=== PATIENT | male | born 1960 | race Caucasian/White ===

== ENCOUNTER → 2016-08-15 | Outpatient (CLI) | payer MEDICARE, OTHER ==
[~2016-08-15] MED LIST: ALBU17AE23 IH; ALPR1T PO; ALPR2TAB2 PO; AMLO1CAP5; AMLO2.5T PO; AMLO5TAB2 PO; BUDE10.2 IH; CATHETER FLUSH 10 ML SYR IV PRN; CHOL10003; CHOL200035 PO; DCS100C; DCS100C PO; DICL75TA2 PO; DOXY100C2 PO; FAMO20TA45 PO; FERR-57; FEXO180T; FLUT9.9S; FURO-125 PO; GABA300T PO; GFN600TCR; HYDR-3584 PO; HYDR-3730 PO; HYDR-3812 PO; HYDR50TA3 PO; IOHEXOL 350 MG/ML 100 ML (OMNIPAQUE 350) VIAL IV ONE; LEVO500T69 PO; LEVO750T6 PO; LEVO88TA54 PO; LVT.05T PO; MTH10T PO; NF-ACI30T PO; NIA500ERT PO; NIAC250T17 PO; NS 100 ML (IVPB) BAG IV ONE; OMEP20CA6; OXYC-12; PARO20TA57 PO; PNT40TEC PO; POLY17PO6 PO; POTA10CA43 PO; POTA20TA8 PO; PRD10T PO; PRD20T PO; RABE20TA PO; RT-ALBUINH IH; SERT100T PO; VIT D2 PO
--- OUTSIDE RECORDS SUMMARY | 2016-08-15 13:03 | XMS REPORT | Continuity of Care Document ---
Author Author [facility] Organization [facility] Address Unknown Phone Unavailable Care Team Providers Care Manager Automotive Name Role Phone Supa Cortez PCP [phone] Source Comments Some departments are not documenting in the electronic medical record. If you do not see the information that you expected, contact Release of Information in the Health Information Management department at [phone] for further assistance in locating additional records.[facility] Active Allergies and Adverse Reactions Allergen Noted [...] Taken Blood Pressure 140/89 07/16/2014 3:45 PM TOXICOLOGY TEACHER Pulse 77 07/16/2014 3:45 PM TOXICOLOGY TEACHER Temperature 36.6 C (97.8 F) 07/16/2014 3:45 PM TOXICOLOGY TEACHER Respiratory Rate 19 07/16/2014 3:45 PM TOXICOLOGY TEACHER Height 1.78 m (5' 10.08") 07/16/2014 3:45 PM TOXICOLOGY TEACHER Weight 117.935 kg (260 lb) 07/16/2014 3:45 PM TOXICOLOGY TEACHER Body Mass Index 37.22 07/16/2014 3:45 PM TOXICOLOGY TEACHER Oxygen Saturation - - Plan of Care Health Maintenance Due Date Last Done Comments Physical (Comprehensive) 1967 Exam Pertussis Vaccine 1970 Tetanus Vaccine 1976 Colorectal Cancer 2009 Screening Influenza Vaccine 04/13/2016 Hepatitis C Screening Completed 06/04/2014, 06/04/2014 Results from Last 3 Months Not on file
--- NOTE | 2016-08-15 14:33 | Diagnostic Imaging Report ---
CT scan of the neck and chest performed with intravenous contrast. 100 mL of Omnipaque 350 is administered intravenously. INDICATION: Difficulty swallowing. History of carcinoma of the tongue. COPD. COMPARISON: 05/01/16. FINDINGS: CT neck: There is stable asymmetric soft tissue thickening along the left lateral aspect of the supraglottic region of the larynx with maximum axial dimensions of 2.1 x 1.8 cm and craniocaudal extension of about 2.7 cm. This is compared to 2.6 x 2.1 cm and 3.8 cm on the previous exam of 05/01/2016. This is again concerning for neoplastic etiology with slight decrease in overall size of this lesion. The mucosal pharyngeal space otherwise appears symmetric. The vocal cords demonstrate slight asymmetry without a discrete nodule. The parotid and submandibular glands appear unremarkable. Slight asymmetry with smaller left thyroid lobe is seen similar to prior exam. No definite mass. There is no significant lymphadenopathy in the cervical chain seen on either side. Previously seen slightly prominent nodule at level II cervical chain on the left side is 0.7 cm in short axis without significant change. CT chest: The lungs demonstrate minimal atelectasis in the bases and mild scarring in the posterior aspect of the right upper lobe. There is no significant consolidation, mass or suspicious nodule. There is mild respiratory motion artifact seen in the chest with the overall diagnostic quality of the exam acceptable for detection of significant abnormalities. There is no mediastinal mass. No significantly enlarged mediastinal or hilar lymph node. No significant axillary lymphadenopathy is seen. The thoracic aorta is normal in caliber. No dissection. The cardiac size is normal. No pericardial or pleural effusion. The osseous structures appear grossly unremarkable. Sections in the upper abdomen demonstrate cholecystectomy clips. IMPRESSION: CT neck: There is interval decrease in the size of the left-sided supraglottic mass. No significant lymphadenopathy or other mass identified. CT chest: 1. No significant abnormality. 2. The osseous structures appear grossly unremarkable. Dictated by: Dictated on workstation # [id number]
== END ==
LOC: RAD 13:00
PROVIDERS: ATTEND Nurse Practitioner Adult Health
DX: C01 Malignant neoplasm of base of tongue (principal)
CPT/HCPCS: 70491; 71260

== ENCOUNTER 2016-08-31 13:46 | Outpatient (RCR) | payer MEDICARE ==
--- OUTSIDE RECORDS SUMMARY | 2016-06-08 08:34 | XMS REPORT | Continuity of Care Document ---
Author Author [facility] Organization [facility] Address Unknown Phone Unavailable Care Team Providers Care Quarter Inspector Name Role Phone Supa Cortez PCP [phone] Source Comments Some departments are not documenting in the electronic medical record. If you do not see the information that you expected, contact Release of Information in the Health Information Management department at [phone] for further assistance in locating additional records.[facility] Active Allergies and Adverse Reactions Allergen Noted Date Severity Reactions Comments Lipitor 10/23/2011 MUSCLE PAIN Mobic 08/26/2009 UNKNOWN renal failure Pcn 05/28/2014 RASH Current Medications Prescription Sig. Disp. Refills Start End Date Status Date famotidine (PEPCID) 20 mg Take 20 mg by mouth twice Active tablet daily. methadone (DOLOPHINE; Take 10 mg by mouth every Active METHADOSE) 10 mg tablet 8 hours Take 2 tablets ALPRAZolam(+) (XANAX) 2 Take 2 mg by mouth three Active mg tablet times daily as needed. sertraline (ZOLOFT) 100 Take 100 mg by mouth Active mg tablet daily. potassium chloride SR Take 20 mEq by mouth Active (K-DUR) 20 mEq tablet daily. hydrochlorothiazide Take 50 mg by mouth Active (HYDRODIURIL) 50 mg daily. tablet polyethylene glycol 3350 Take 17 g by mouth daily. Active (GLYCOLAX; MIRALAX) 17 gram/dose powder levothyroxine (SYNTHROID) Take 88 mcg by mouth Active 88 mcg tablet daily. RABEprazole DR (+) Take 20 mg by mouth Active (ACIPHEX) 20 mg tablet daily. albuterol (VENTOLIN HFA, Inhale 2 Puffs by mouth Active PROAIR HFA) 90 every 6 hours as needed. mcg/actuation inhaler ergocalciferol (VITAMIN Take 1 Cap by mouth every 12 Cap 0 06/19/20 Active D-2) 50,000 unit capsule 7 days. For 12 weeks. 14 amLODIPine (NORVASC) 5 mg Take 5 mg by mouth daily. Active tablet Active Problems Problem Noted Date OCD (obsessive compulsive disorder) 07/16/2014 Elevated antinuclear antibody (CELENA) level 06/04/2014 Fibromyalgia 06/04/2014 Arthralgia 06/04/2014 Fatigue 06/04/2014 Sleep apnea 06/04/2014 Anxiety and depression 06/04/2014 Hypothyroidism 06/04/2014 HTN (hypertension) 06/04/2014 History of seasonal allergies 06/04/2014 History of asthma 06/04/2014 Hives 06/04/2014 Chronic LBP 06/04/2014 Social History Tobacco Use Types Packs/Day Years Used Date Never Smoker Smokeless Tobacco: Never Used Alcohol Use Drinks/Week oz/Week Comments No Last Filed Vital Signs Vital Sign Reading Time Taken Blood Pressure 140/89 07/16/2014 3:45 PM NEEDLE FELT MAKING MACHINE OPERATOR Pulse 77 07/16/2014 3:45 PM NEEDLE FELT MAKING MACHINE OPERATOR Temperature 36.6 C (97.8 F) 07/16/2014 3:45 PM NEEDLE FELT MAKING MACHINE OPERATOR Respiratory Rate 19 07/16/2014 3:45 PM NEEDLE FELT MAKING MACHINE OPERATOR Height 1.78 m (5' 10.08") 07/16/2014 3:45 PM NEEDLE FELT MAKING MACHINE OPERATOR Weight 117.935 kg (260 lb) 07/16/2014 3:45 PM NEEDLE FELT MAKING MACHINE OPERATOR Body Mass Index 37.22 07/16/2014 3:45 PM NEEDLE FELT MAKING MACHINE OPERATOR Oxygen Saturation - - Plan of Care Health Maintenance Due Date Last Done Comments Physical (Comprehensive) 1967 Exam Pertussis Vaccine 1970 Tetanus Vaccine 1976 Colorectal Cancer 2009 Screening Influenza Vaccine 04/13/2016 Hepatitis C Screening Completed 06/04/2014, 06/04/2014 Results from Last 3 Months Not on file
[2016-07-20 13:54] LABS: BASOPHILS % (AUTO) 1 % (0-10); EOSINOPHILS # (AUTO) 0.1 10^3/uL (0.0-0.3); EOSINOPHILS % (AUTO) 2 % (0-10); LYMPHOCYTES # (AUTO) 1.5 X 10^3 (1.0-4.0); LYMPHOCYTES % (AUTO) 23 % (12-44); MEAN CORPUSCULAR HEMOGLOBIN 30 PG (25-34); MEAN CORPUSCULAR HGB CONC 33 G/DL (32-36); MEAN CORPUSCULAR VOLUME 91 FL (80-99); MEAN PLATELET VOLUME 9.6 FL (7.4-10.4); MONOCYTES # (AUTO) 0.7 X 10^3 (0.0-1.0); MONOCYTES % (AUTO) 10 % (0-12); NEUTROPHILS # (AUTO) 4.2 X 10^3 (1.8-7.8); NEUTROPHILS % (AUTO) 65 % (42-75); PLATELET COUNT 349 10^3/uL (130-400); RED BLOOD COUNT 4.94 10^6/uL (4.35-5.85); RED CELL DISTRIBUTION WIDTH 14.4 % (10.0-14.5); WHITE BLOOD COUNT 6.6 10^3/uL (4.3-11.0)
[2016-07-20 14:35] LABS: ALANINE AMINOTRANSFERASE 18 U/L (0-55); ALBUMIN 4.5 G/DL (3.2-4.5); ANION GAP 12 MMOL/L (5-14); ASPARTATE AMINO TRANSFERASE 19 U/L (5-34); BILIRUBIN,TOTAL 0.6 MG/DL (0.1-1.0); BLOOD UREA NITROGEN 28 MG/DL (7-18); BUN/CREATININE RATIO 23; CALCIUM 9.7 MG/DL (8.5-10.1); CARBON DIOXIDE 26 MMOL/L (21-32); CHLORIDE 101 MMOL/L (98-107); CREATININE SERUM 1.23 MG/DL (0.60-1.30); GFR ESTIMATED > 60; GLUCOSE 154 MG/DL (70-105); POTASSIUM 3.4 MMOL/L (3.6-5.0); SODIUM 139 MMOL/L (135-145); TOTAL PROTEIN 7.6 G/DL (6.4-8.2)
[2016-07-20 14:55] LABS: THYROID STIMULATING HORMONE 13.38 UIU/ML (0.35-4.94)
[~2016-08-31 13:46] MED LIST changes: -CATHETER FLUSH 10 ML SYR IV PRN; -IOHEXOL 350 MG/ML 100 ML (OMNIPAQUE 350) VIAL IV ONE; -NS 100 ML (IVPB) BAG IV ONE
== END 2016-09-06 | disposition home or self-care (01) ==
LOC: ONC 13:46
PROVIDERS: ATTEND Internal Medicine Hematology & Oncology
DX: C01 Malignant neoplasm of base of tongue (principal); C77.0 Secondary and unspecified malignant neoplasm of lymph nodes of head, face and neck; I10 Essential (primary) hypertension; K21.9 Gastro-esophageal reflux disease without esophagitis; E03.9 Hypothyroidism, unspecified; Z79.899 Other long term (current) drug therapy
CPT/HCPCS: 36591; 80053; 82306; 84443; 85025

== ENCOUNTER 2017-01-04 09:58 | Outpatient (RCR) | payer MEDICARE, OTHER ==
--- OUTSIDE RECORDS SUMMARY | 2016-10-12 13:48 | XMS REPORT | Continuity of Care Document ---
Author Author [facility] Organization [facility] Address Unknown Phone Unavailable Care Team Providers Care Gunite Mixer Name Role Phone Supa Cortez PCP [phone] Source Comments Some departments are not documenting in the electronic medical record. If you do not see the information that you expected, contact Release of Information in the Health Information Management department at [phone] for further assistance in locating additional records.[facility] Active Allergies and Adverse Reactions Allergen Noted [...] Taken Blood Pressure 140/89 07/16/2014 3:45 PM PASTRY COOK HELPER Pulse 77 07/16/2014 3:45 PM PASTRY COOK HELPER Temperature 36.6 C (97.8 F) 07/16/2014 3:45 PM PASTRY COOK HELPER Respiratory Rate 19 07/16/2014 3:45 PM PASTRY COOK HELPER Height 1.78 m (5' 10.08") 07/16/2014 3:45 PM PASTRY COOK HELPER Weight 117.935 kg (260 lb) 07/16/2014 3:45 PM PASTRY COOK HELPER Body Mass Index 37.22 07/16/2014 3:45 PM PASTRY COOK HELPER Oxygen Saturation - - Plan of Care Health Maintenance Due Date Last Done Comments Physical (Comprehensive) 1967 Exam Pertussis Vaccine 1970 Tetanus Vaccine 1976 Colorectal Cancer 2009 Screening Influenza Vaccine 04/13/2016 Hepatitis C Screening Completed 06/04/2014, 06/04/2014 Results from Last 3 Months Not on file
[2016-10-12 14:12] LABS: BASOPHILS % (AUTO) 1 % (0-10); EOSINOPHILS # (AUTO) 0.3 10^3/uL (0.0-0.3); EOSINOPHILS % (AUTO) 10 % (0-10); LYMPHOCYTES # (AUTO) 1.1 X 10^3 (1.0-4.0); LYMPHOCYTES % (AUTO) 34 % (12-44); MEAN CORPUSCULAR HEMOGLOBIN 29 PG (25-34); MEAN CORPUSCULAR HGB CONC 32 G/DL (32-36); MEAN CORPUSCULAR VOLUME 90 FL (80-99); MEAN PLATELET VOLUME 9.2 FL (7.4-10.4); MONOCYTES # (AUTO) 0.3 X 10^3 (0.0-1.0); MONOCYTES % (AUTO) 10 % (0-12); NEUTROPHILS # (AUTO) 1.5 X 10^3 (1.8-7.8); NEUTROPHILS % (AUTO) 45 % (42-75); PLATELET COUNT 243 10^3/uL (130-400); RED BLOOD COUNT 4.24 10^6/uL (4.35-5.85); RED CELL DISTRIBUTION WIDTH 13.9 % (10.0-14.5); WHITE BLOOD COUNT 3.3 10^3/uL (4.3-11.0)
[2016-10-12 14:46] LABS: ANION GAP 8 MMOL/L (5-14); BLOOD UREA NITROGEN 17 MG/DL (7-18); BUN/CREATININE RATIO 17; CARBON DIOXIDE 28 MMOL/L (21-32); CHLORIDE 103 MMOL/L (98-107); CREATININE SERUM 1.03 MG/DL (0.60-1.30); POTASSIUM 3.7 MMOL/L (3.6-5.0); SODIUM 139 MMOL/L (135-145)
[2016-10-12 14:47] LABS: ALANINE AMINOTRANSFERASE 14 U/L (0-55); ALBUMIN 3.8 G/DL (3.2-4.5); ASPARTATE AMINO TRANSFERASE 21 U/L (5-34); BILIRUBIN,TOTAL 0.5 MG/DL (0.1-1.0); CALCIUM 9.1 MG/DL (8.5-10.1); GFR ESTIMATED > 60; GLUCOSE 96 MG/DL (70-105); TOTAL PROTEIN 6.4 G/DL (6.4-8.2)
[2016-10-12 15:08] LABS: THYROID STIMULATING HORMONE 7.16 UIU/ML (0.35-4.94)
[2017-01-04 10:37] LABS: BASOPHILS % (AUTO) 1 % (0-10); EOSINOPHILS # (AUTO) 0.9 10^3/uL (0.0-0.3); EOSINOPHILS % (AUTO) 14 % (0-10); LYMPHOCYTES # (AUTO) 1.3 X 10^3 (1.0-4.0); LYMPHOCYTES % (AUTO) 21 % (12-44); MEAN CORPUSCULAR HEMOGLOBIN 30 PG (25-34); MEAN CORPUSCULAR HGB CONC 32 G/DL (32-36); MEAN CORPUSCULAR VOLUME 91 FL (80-99); MEAN PLATELET VOLUME 9.7 FL (7.4-10.4); MONOCYTES # (AUTO) 0.6 X 10^3 (0.0-1.0); MONOCYTES % (AUTO) 11 % (0-12); NEUTROPHILS # (AUTO) 3.2 X 10^3 (1.8-7.8); NEUTROPHILS % (AUTO) 53 % (42-75); PLATELET COUNT 248 10^3/uL (130-400); RED BLOOD COUNT 4.42 10^6/uL (4.35-5.85); RED CELL DISTRIBUTION WIDTH 14.3 % (10.0-14.5); WHITE BLOOD COUNT 6.1 10^3/uL (4.3-11.0)
[2017-01-04 10:55] LABS: ALANINE AMINOTRANSFERASE 20 U/L (0-55); ALBUMIN 4.2 G/DL (3.2-4.5); ANION GAP 9 MMOL/L (5-14); ASPARTATE AMINO TRANSFERASE 21 U/L (5-34); BILIRUBIN,TOTAL 0.3 MG/DL (0.1-1.0); BLOOD UREA NITROGEN 22 MG/DL (7-18); BUN/CREATININE RATIO 21; CALCIUM 9.4 MG/DL (8.5-10.1); CARBON DIOXIDE 29 MMOL/L (21-32); CHLORIDE 102 MMOL/L (98-107); CREATININE SERUM 1.03 MG/DL (0.60-1.30); GFR ESTIMATED > 60; GLUCOSE 95 MG/DL (70-105); POTASSIUM 3.9 MMOL/L (3.6-5.0); SODIUM 140 MMOL/L (135-145); TOTAL PROTEIN 7.4 G/DL (6.4-8.2)
[2017-01-04 11:14] LABS: THYROID STIMULATING HORMONE 10.83 UIU/ML (0.35-4.94)
== END 2017-01-10 | disposition home or self-care (01) ==
LOC: ONC 09:58
PROVIDERS: ATTEND Internal Medicine Hematology & Oncology
DX: C01 Malignant neoplasm of base of tongue (principal); C77.0 Secondary and unspecified malignant neoplasm of lymph nodes of head, face and neck; I10 Essential (primary) hypertension; K21.9 Gastro-esophageal reflux disease without esophagitis; E03.9 Hypothyroidism, unspecified; Z79.899 Other long term (current) drug therapy
CPT/HCPCS: 36591; 80053; 82306; 84443; 85025; 99213

== ENCOUNTER → 2017-01-15 | Outpatient (CLI) | payer MEDICARE ==
--- NOTE | 2017-01-15 16:19 | Diagnostic Imaging Report ---
EXAMINATION: Ultrasound of the soft tissues of the neck. INDICATION: Swelling along the left cheek area. FINDINGS: There is no fluid collection or definite mass identified. IMPRESSION: No fluid collection is identified. Dictated by: Dictated on workstation # [id number]
== END ==
LOC: RAD 15:09
PROVIDERS: ATTEND Internal Medicine
DX: R22.0 Localized swelling, mass and lump, head (principal)
CPT/HCPCS: 76536

== ENCOUNTER → 2017-01-25 | Outpatient (CLI) | payer MEDICARE ==
[2017-01-25] MEDS: IOHEXOL 350 MG/ML 100 ML (OMNIPAQUE 350) VIAL IV ONE (10:22)
[2017-01-25] MEDS: NS 100 ML (IVPB) BAG IV ONE (10:23)
--- NOTE | 2017-01-25 13:29 | Diagnostic Imaging Report ---
PROCEDURE: CT neck soft tissue with contrast. TECHNIQUE: Multiple contiguous axial images were obtained through the neck after the administration of contrast. INDICATION: Laryngeal cancer. Jaw swelling. FINDINGS: The area marked where the patient is feeling the swelling is overlying the inferior aspect of the left parotid gland. There is no underlying lymphadenopathy, soft tissue mass or fluid collection. There is fatty stranding seen which is perhaps related to inflammation or infection. If the patient received radiation, this could be radiation effect. The previously seen mass in the supraglottic region on the left side along the left piriform fossa is not seen at this time. The vocal cords are symmetric. No mucosal pharyngeal space mass is noted at this time. The submandibular glands are relatively small in size. Vascular enhancement in the jugular veins and the carotid arteries is within normal limits. No lymphadenopathy is noted. The osseous structures appear grossly unremarkable. The lung apices appear clear. IMPRESSION: 1. The area of swelling marked corresponds to the inferior aspect of the left parotid gland level with overlying minimal fatty stranding. This is suggestive of nonspecific inflammation or infection. This could also be radiation induced. 2. The previously seen laryngeal mass is not seen at this time. No soft tissue mass or lymphadenopathy in the neck identified. Dictated by: Dictated on workstation # [id number]
== END ==
LOC: RAD 10:02
PROVIDERS: ATTEND Nurse Practitioner Adult Health
DX: R22.0 Localized swelling, mass and lump, head (principal); C01 Malignant neoplasm of base of tongue
CPT/HCPCS: 70491

== ENCOUNTER 2017-03-29 12:59 | Outpatient (RCR) | payer MEDICARE, OTHER ==
[2017-03-29 13:24] LABS: BASOPHILS % (AUTO) 0 % (0-10); EOSINOPHILS # (AUTO) 0.3 10^3/uL (0.0-0.3); EOSINOPHILS % (AUTO) 6 % (0-10); LYMPHOCYTES # (AUTO) 1.4 X 10^3 (1.0-4.0); LYMPHOCYTES % (AUTO) 30 % (12-44); MEAN CORPUSCULAR HEMOGLOBIN 29 PG (25-34); MEAN CORPUSCULAR HGB CONC 32 G/DL (32-36); MEAN CORPUSCULAR VOLUME 91 FL (80-99); MEAN PLATELET VOLUME 9.3 FL (7.4-10.4); MONOCYTES # (AUTO) 0.6 X 10^3 (0.0-1.0); MONOCYTES % (AUTO) 12 % (0-12); NEUTROPHILS # (AUTO) 2.5 X 10^3 (1.8-7.8); NEUTROPHILS % (AUTO) 52 % (42-75); PLATELET COUNT 282 10^3/uL (130-400); RED BLOOD COUNT 4.51 10^6/uL (4.35-5.85); RED CELL DISTRIBUTION WIDTH 13.6 % (10.0-14.5); WHITE BLOOD COUNT 4.7 10^3/uL (4.3-11.0)
[2017-03-29 13:43] LABS: ALANINE AMINOTRANSFERASE 23 U/L (0-55); ANION GAP 7 MMOL/L (5-14); ASPARTATE AMINO TRANSFERASE 23 U/L (5-34); BILIRUBIN,TOTAL 0.4 MG/DL (0.1-1.0); BLOOD UREA NITROGEN 6 MG/DL (7-18); BUN/CREATININE RATIO 6; CALCIUM 9.4 MG/DL (8.5-10.1); CARBON DIOXIDE 30 MMOL/L (21-32); CHLORIDE 103 MMOL/L (98-107); CREATININE SERUM 1.06 MG/DL (0.60-1.30); GFR ESTIMATED > 60; GLUCOSE 115 MG/DL (70-105); POTASSIUM 3.6 MMOL/L (3.6-5.0); SODIUM 140 MMOL/L (135-145)
[2017-03-29 14:02] LABS: THYROID STIMULATING HORMONE 2.48 UIU/ML (0.35-4.94)
== END 2017-04-22 | disposition home or self-care (01) ==
LOC: ONC 12:59
PROVIDERS: ATTEND Internal Medicine Hematology & Oncology
DX: C01 Malignant neoplasm of base of tongue (principal); C77.0 Secondary and unspecified malignant neoplasm of lymph nodes of head, face and neck; I10 Essential (primary) hypertension; K21.9 Gastro-esophageal reflux disease without esophagitis; E03.9 Hypothyroidism, unspecified; Z79.899 Other long term (current) drug therapy
CPT/HCPCS: 36591; 80053; 82306; 84443; 85025; 99213

== ENCOUNTER 2017-05-10 13:37 | Outpatient (RCR) | payer MEDICARE, OTHER | END 2017-05-12 | disposition home or self-care (01) | LOC: ONC 13:37 | PROVIDERS: ATTEND Internal Medicine Hematology & Oncology | DX: C01 Malignant neoplasm of base of tongue (principal); C77.0 Secondary and unspecified malignant neoplasm of lymph nodes of head, face and neck; I10 Essential (primary) hypertension; K21.9 Gastro-esophageal reflux disease without esophagitis; E03.9 Hypothyroidism, unspecified; Z79.899 Other long term (current) drug therapy; Z45.2 Encounter for adjustment and management of vascular access device | CPT/HCPCS: 96523 ==

== ENCOUNTER → 2017-06-27 | Outpatient (CLI) | payer MEDICARE ==
[~2017-06-27] MED LIST changes: +CATHETER FLUSH 10 ML SYR IV PRN; +IOHEXOL 350 MG/ML 100 ML (OMNIPAQUE 350) VIAL IV ONE; +NS 100 ML (IVPB) BAG IV ONE
--- NOTE | 2017-06-27 17:07 | Diagnostic Imaging Report ---
EXAMINATION: CT neck and chest performed with intravenous contrast. 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 100 mL of Omnipaque 350 is administered intravenously. COMPARISON: 01/25/2017 CT neck and 08/15/2016 CT chest. FINDINGS: CT NECK: The mucosal pharyngeal space demonstrates no definite mass. The vocal cords are symmetric. There is no significantly enlarged lymph nodes noted. The parotid and the submandibular glands appear symmetric. The carotid arteries and internal jugular veins are opacified. There are no significantly enlarged cervical chain lymph nodes seen. The visualized portions of the paranasal sinuses appear unremarkable. The osseous structures appear grossly unremarkable. CT CHEST: There is mild patchy consolidation seen in the right upper lobe in the perihilar region. This has a nonspecific appearance in favor of atelectasis or pneumonitis. There is no mass or suspicious nodule seen otherwise. There is no mediastinal mass or lymphadenopathy. No hilar lymphadenopathy seen. No significantly enlarged axillary lymph nodes are noted. No pericardial or pleural effusion. The heart size is normal. Sections in the upper abdomen demonstrate surgical clips in the gallbladder bed. There is mild chronic compression fracture seen in T7 vertebral body. IMPRESSION: CT NECK: No evidence of tumor recurrence or cervical chain lymphadenopathy. CT CHEST: Perihilar mild patchy consolidation in the right upper lobe is favored to be pneumonitis or atelectasis related. No definite evidence of metastasis. Followup exams recommended. Dictated by: Dictated on workstation # [id number]
== END ==
LOC: RAD 14:08
PROVIDERS: ATTEND Otolaryngology Otolaryngology/Facial Plastic Surgery
DX: Z85.810 Personal history of malignant neoplasm of tongue (principal)
CPT/HCPCS: 70491; 71260

== ENCOUNTER 2017-08-16 14:07 | Outpatient (RCR) | payer MEDICARE, OTHER ==
[2017-06-21 16:09] LABS: BASOPHILS % (AUTO) 0 % (0-10); EOSINOPHILS # (AUTO) 0.3 10^3/uL (0.0-0.3); EOSINOPHILS % (AUTO) 4 % (0-10); HEMATOCRIT 40 % (40-54); HEMOGLOBIN 13.2 G/DL (13.3-17.7); LYMPHOCYTES # (AUTO) 1.8 X 10^3 (1.0-4.0); LYMPHOCYTES % (AUTO) 24 % (12-44); MEAN CORPUSCULAR HEMOGLOBIN 30 PG (25-34); MEAN CORPUSCULAR HGB CONC 33 G/DL (32-36); MEAN CORPUSCULAR VOLUME 90 FL (80-99); MEAN PLATELET VOLUME 9.8 FL (7.4-10.4); MONOCYTES # (AUTO) 0.7 X 10^3 (0.0-1.0); MONOCYTES % (AUTO) 9 % (0-12); NEUTROPHILS # (AUTO) 4.9 X 10^3 (1.8-7.8); NEUTROPHILS % (AUTO) 64 % (42-75); PLATELET COUNT 279 10^3/uL (130-400); RED BLOOD COUNT 4.45 10^6/uL (4.35-5.85); RED CELL DISTRIBUTION WIDTH 13.6 % (10.0-14.5); WHITE BLOOD COUNT 7.7 10^3/uL (4.3-11.0)
[2017-06-21 16:26] LABS: ALANINE AMINOTRANSFERASE 16 U/L (0-55); ALBUMIN 3.9 GM/DL (3.2-4.5); ALKALINE PHOSPHATASE 84 U/L (40-136); BILIRUBIN,TOTAL 0.3 MG/DL (0.1-1.0); BUN/CREATININE RATIO 15; CALCIUM 9.2 MG/DL (8.5-10.1); CARBON DIOXIDE 26 MMOL/L (21-32); CHLORIDE 103 MMOL/L (98-107); CREATININE SERUM 0.94 MG/DL (0.60-1.30); GFR ESTIMATED > 60; GLUCOSE 115 MG/DL (70-105); POTASSIUM 3.8 MMOL/L (3.6-5.0); SODIUM 136 MMOL/L (135-145); TOTAL PROTEIN 6.9 GM/DL (6.4-8.2)
[~2017-08-16 14:07] MED LIST changes: +ACHD5005 PO; -CATHETER FLUSH 10 ML SYR IV PRN; -HYDR-3812 PO; -IOHEXOL 350 MG/ML 100 ML (OMNIPAQUE 350) VIAL IV ONE; -NS 100 ML (IVPB) BAG IV ONE; -SERT100T PO; +SERT20OR PO
[2017-09-11] MEDS ORDERED: METH10TA2 PO (13:12)
[2017-09-11] MEDS ORDERED: ALPR2TAB6 PO (13:12)
[2017-09-11] MEDS ORDERED: LEVO175T5 PO (13:12)
[2017-09-18] MEDS ORDERED: LISI-552 PO (10:54)
[2017-09-18] MEDS ORDERED: SUCR1TAB36 PO (11:06)
[2017-09-18] MEDS ORDERED: PANT40TA2 PO (11:06)
== END 2017-09-19 16:31 | disposition home or self-care (01) ==
LOC: ONC 14:07
PROVIDERS: ATTEND Internal Medicine Hematology & Oncology
DX: C01 Malignant neoplasm of base of tongue (principal); C77.0 Secondary and unspecified malignant neoplasm of lymph nodes of head, face and neck; E55.9 Vitamin D deficiency, unspecified; I10 Essential (primary) hypertension; K21.9 Gastro-esophageal reflux disease without esophagitis; E03.9 Hypothyroidism, unspecified; Z79.899 Other long term (current) drug therapy; Z45.2 Encounter for adjustment and management of vascular access device
CPT/HCPCS: 36591; 80053; 82306; 84443; 85025; 96523

== ENCOUNTER 2017-09-11 05:51 | Outpatient (CLI) | payer MEDICARE ==
[~2017-09-11] VITALS: Ht 175.3 cm; Wt 101.2 kg
[2017-09-11] MEDS ORDERED: METH10TA2 PO (13:12)
[2017-09-11] MEDS ORDERED: LEVO175T5 PO (13:12)
[2017-09-11] MEDS ORDERED: ALPR2TAB6 PO (13:12)
== END 2017-09-11 13:17 ==
LOC: PREOP 05:51
PROVIDERS: ATTEND Surgery
DX: Z01.818 Encounter for other preprocedural examination (principal); R13.10 Dysphagia, unspecified

== ENCOUNTER 2017-09-18 09:52 | Day surgery (SDC) | payer MEDICARE ==
[~2017-09-18] VITALS: Ht 175.3 cm; Wt 101.2 kg
[~2017-09-18 09:52] MED LIST changes: +ALPR2TAB6 PO; +LEVO175T5 PO; +METH10TA2 PO
[2017-09-18 10:04] VITALS: BP 129/93
[2017-09-18] MEDS ORDERED: LACTATED RINGERS 1,000 ML IV STA (10:05)
--- OUTSIDE RECORDS SUMMARY | 2017-09-18 10:05 | XMS REPORT | Clinical Summary ---
Author Author [facility] Organization [facility] Address Unknown Phone Unavailable Care Team Providers Care Cultural Anthropology Professor Name Role Phone Teofilo Hartley MD Unavailable Supa Cortez MD PCP Cori Avalos MD Unavailable Source Comments Some departments are not documenting in the electronic medical record. If you do not see the information that you expected, contact Release of Information in the Health Information Management department at [phone] for further assistance in locating additional records.[facility] Allergies Active Allergy Reactions Severity Noted Date Comments Atorvastatin MUSCLE PAIN 10/23/2011 Meloxicam UNKNOWN 08/26/2009 renal failure Penicillins RASH 05/28/2014 Current Medications Prescription Sig. Disp. Refills Start [...] asthma 06/04/2014 Hives 06/04/2014 Chronic LBP 06/04/2014 Family History Medical History Relation Name Comments Arthritis-osteo Father 76 Cancer-Prostate Father 76 Hypotension Father 76 Arthritis-osteo Mother 63 Cancer Mother 63 Stroke Mother 63 Relation Name Status Comments Father 76 Mother 63 Social History Tobacco Use Types Packs/Day Years Used Date Never Smoker Smokeless Tobacco: Never Used Alcohol Use Drinks/Week oz/Week Comments No Sex Assigned at Date Recorded Not on file Last Filed Vital Signs Vital Sign Reading Time Taken Blood Pressure 140/89 07/16/2014 3:45 PM KEY HOLDER Pulse 77 07/16/2014 3:45 PM KEY HOLDER Temperature 36.6 C (97.8 F) 07/16/2014 3:45 PM KEY HOLDER Respiratory Rate 19 07/16/2014 3:45 PM KEY HOLDER Oxygen Saturation - - Inhaled Oxygen - - Concentration Weight 117.9 kg (260 lb) 07/16/2014 3:45 PM KEY HOLDER Height 178 cm (5' 10.08") 07/16/2014 3:45 PM KEY HOLDER Body Mass Index 37.22 07/16/2014 3:45 PM KEY HOLDER Plan of Treatment Health Maintenance Due Date Last Done Comments PHYSICAL (COMPREHENSIVE) 1967 EXAM PERTUSSIS VACCINE 1970 TETANUS VACCINE 1976 COLORECTAL CANCER 2009 SCREENING INFLUENZA VACCINE 03/13/2017 HEPATITIS C SCREENING Completed 06/04/2014, 06/04/2014 Results Not on filefrom Last 3 Months
--- OUTSIDE RECORDS SUMMARY | 2017-09-18 10:05 | XMS REPORT ---
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
--- OUTSIDE RECORDS SUMMARY | 2017-09-18 10:05 | XMS REPORT ---
Author Author FRANCA S[facility]NCHE[facility] Organization [employer] Address Unknown Phone Unavailable Care Team Providers Care Tool Repairer Bench Name Role Phone FRANCA SÁNCHEZ CP Unavailable Allergies No Known Allergies Problems Problem Type Condition Code Onset Dates Condition Status Problem Impotence of organic origin 607.84 Active Problem Major depressive disorder, recurrent episode, moderate 296.32 Active Problem Pain in joint, multiple sites 719.49 Active Problem Major depressive disorder, recurrent episode, moderate F33.1 Active Problem Generalized anxiety disorder F41.1 Active Problem Hypertension I10 Active Problem Unspecified hereditary and idiopathic peripheral neuropathy 356.9 Active Problem Gout, unspecified 274.9 Active Problem 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
--- OUTSIDE RECORDS SUMMARY | 2017-09-18 10:06 | XMS REPORT ---
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 45381223 Problem Arthritis M19.90 Active 8815005 Problem History of elevated PSA Z87.898 Active 540565234 Problem COPD (chronic obstructive pulmonary disease) J44.9 Active 23942651 Problem Arthralgia, unspecified joint M25.50 Active 48982538 Problem Adverse effect of other opioids, initial encounter T40.2X5A Active 890058971 Problem Head and neck cancer C76.0 Active 894387740 ALLERGIES Unknown Allergies SOCIAL HISTORY No smoking Hx information available PLAN OF CARE VITAL SIGNS MEDICATIONS Medication Instructions Dosage Frequency Start Date End Date Duration Status methadone 10 mg oral, Chronic pain every 8 hours 3 tablets 8h Oct, Active RESULTS No Results PROCEDURES No Known procedures IMMUNIZATIONS No Known Immunizations
--- OUTSIDE RECORDS SUMMARY | 2017-09-18 10:06 | XMS REPORT ---
Author Author FRANCA SÁNCHEZ Organization [employer] Address Unknown Phone Unavailable Care Team Providers Care Criminal Justice Professor Name Role Phone FRANCA SÁNCHEZ CP Unavailable Allergies No Known Allergies Problems Problem Type Condition Code Onset Dates Condition Status Problem Pain in joint, multiple sites 719.49 Active Problem Gout, unspecified 274.9 Active Problem Major depressive disorder, recurrent episode, moderate 296.32 Active Assessment Osteoarthritis M19.90 Active Problem Impotence of organic origin 607.84 Active Problem Hypertension I10 Active Problem Major depressive disorder, recurrent episode, moderate F33.1 Active Problem Cervical lymphadenopathy R59.0 Active Problem Other emphysema 492.8 Active Problem Unspecified hereditary and idiopathic peripheral neuropathy 356.9 Active Problem Generalized anxiety disorder F41.1 Active Problem 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
--- OUTSIDE RECORDS SUMMARY | 2017-09-18 10:06 | XMS REPORT ---
Author Author FRANCA SÁNCHEZ Organization [employer] Address Unknown Phone Unavailable Care Team Providers Care Heavy Equipment Technician Name Role Phone FRANCA SÁNCHEZ CP Unavailable Allergies No Known Allergies Problems Problem Type Condition Code Onset Dates Condition Status Assessment Osteoarthritis M19.90 Active Problem Gout, unspecified 274.9 Active Problem Impotence of organic origin 607.84 Active Problem Arthritis M19.90 Active Problem Cervical lymphadenopathy R59.0 Active Problem COPD (chronic obstructive pulmonary disease) J44.9 Active Problem Generalized anxiety disorder F41.1 Active Problem 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
--- OUTSIDE RECORDS SUMMARY | 2017-09-18 10:06 | XMS REPORT ---
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 49059925 Problem Arthritis M19.90 Active 1715695 Problem History of elevated PSA Z87.898 Active 627090762 Problem COPD (chronic obstructive pulmonary disease) J44.9 Active 42203925 Problem Arthralgia, unspecified joint M25.50 Active 84355226 Problem Adverse effect of other opioids, initial encounter T40.2X5A Active 628181841 Problem Head and neck cancer C76.0 Active 878167358 ALLERGIES No Information SOCIAL HISTORY Never Assessed PLAN OF CARE Activity Details Follow Up 4 Weeks Reason:BH F/U VITAL SIGNS MEDICATIONS Unknown Medications RESULTS No Results PROCEDURES Procedure Date Ordered Result Body Site [facility] VISIT MENTAL HEALTH ESTAB PT October 23, 2016 Psychotherapy, patient &/family, 45 minutes, established patient October 23, 2016 IMMUNIZATIONS No Known Immunizations MEDICAL (GENERAL) HISTORY Type Description Date Medical History allergic rhinitis Medical History hypertension Medical History Hypothyroidism Medical History Arthritis Medical History seizures r/t low K+ (06/2008) Medical History chronic pain-low back Medical History dyssomnia Medical History fibromyalgia Medical History restless leg syndrome Medical History tumor under tongue Surgical History cholecystectomy 11/2009 Surgical History spinal fusion L5-S1 with hardware 03/2003 Surgical History arthroscopic knee surgery Surgical History appendectomy 11/2009 Surgical History Bronchoscopy 2011 Surgical History feeding tube placement 08/28 Surgical History PICC line placement Hospitalization History Pneumonia 2011 Hospitalization History Back surgery 03/2003 Hospitalization History appendectomy 11/2009
--- OUTSIDE RECORDS SUMMARY | 2017-09-18 10:06 | XMS REPORT ---
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 Assessment Seasonal allergic rhinitis, unspecified allergic rhinitis trigger J30.2 Active Problem Impotence of organic origin 607.84 Active Problem Head and neck cancer C76.0 Active Problem COPD (chronic obstructive pulmonary disease) J44.9 Active Problem Adverse effect of other opioids, initial encounter T40.2X5A Active Problem Hypertension I10 Active Problem Major depressive disorder, recurrent episode, moderate F33.1 Active Problem Arthritis M19.90 Active Problem Arthralgia, unspecified joint M25.50 Active Medications Medication Code System Code Instructions Start Date End Date Status Dosage methadone NDC 0 10 mg oral, Chronic pain every 8 hours November 06, 2014 2 tablet Sertraline HCl [facility] [address]-69 100 MG Orally Once a day October 26, 2015 2 [address] [facility] [address]-65 20 MG Orally Once a day Jul 03, 2014 1 tablet at bedtime Amlodipine Besylate [facility] 36230478249 5 MG Orally Once a day 1 tablet Zoloft [facility] [address]-18 100 MG Orally Once a day Sep 18, 2014 2 tablets Famotidine [facility] 62438852039 20 MG TAKE ONE TABLET BY MOUTH DAILY Hydrochlorothiazide [facility] [address]-32 50 mg January 08, 2014 1 Tablet by Oral route 1 time per day PRN edema Klor-Con M20 [facility] [address]-78 20 mEq February 02, 2014 2 Tablet by Oral route 1 time per day Levothyroxine Sodium [facility] 28807765859 88 MCG TAKE ONE TABLET BY MOUTH DAILY HydrOXYzine HCl [facility] [address]-10 10 MG Orally 3 times a day Jun 23, 2015 as directed Xanax [facility] [address]-88 2 MG Orally Three times a day October 21, 2014 1 tablet MiraLax [facility] [address]-71 17 gram/dose Orally Once a day prn December 16, 2013 Aug 22, 2016 take 8.5 g mixed with 8 oz. water or juice by Oral route 1 time per day PRN constipation Vitamin D2 [facility] [address]183 50,000 unit Orally January 29, 2013 take 1 capsule (50,000 unit) by oral route once weekly for 12 weeks Alprazolam [facility] [address]-98 2 MG Orally 3 times a day as needed for anxiety 1 tablet Ventolin HFA [facility] [address]-62 90 mcg/actuation December 19, 2012 2 Inhaler by Inhalation route every 4-6 hours PRN Procedures Procedure Coding System Code Date Office Visit, Est Pt., Level 3 CPT-4 25668 Mar 23, 2016 Vital Signs Date/Time: Mar 23, 2016 Cardiac Monitoring Heart Rate 88 bpm Weight 210.0 lbs Height 69 in BMI 31.01 Index Blood Pressure Diastolic 90 mmHg Blood Pressure Systolic 115 mmHg Results No Known Results Summary Purpose eClinicalWorks Submission
--- OUTSIDE RECORDS SUMMARY | 2017-09-18 10:06 | XMS REPORT ---
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
--- OUTSIDE RECORDS SUMMARY | 2017-09-18 10:06 | XMS REPORT ---
Author FRANCA Velasquez [facility] eClinicalWorks Address Unknown Phone Unavailable Care Team Providers Care Labelling Machine Operator Name Role Phone FRANCA SÁNCHEZ CP Unavailable Allergies, Adverse Reactions, Alerts Substance Reaction Event Type Penicillin V Potassium Info Not Available Drug Allergy Mobic Info Not Available Drug Allergy Lipitor Info Not Available Drug Allergy Problems Problem Type Condition Code Onset Dates Condition Status Problem Pain in joint, multiple sites 719.49 Active Problem Gout, unspecified 274.9 Active Problem Major depressive disorder, recurrent episode, moderate 296.32 Active Problem Hypertension I10 Active Problem Major depressive disorder, recurrent episode, moderate F33.1 Active Problem Cervical lymphadenopathy R59.0 Active Problem Other emphysema 492.8 Active Problem Unspecified hereditary and idiopathic peripheral neuropathy 356.9 Active Problem Generalized anxiety disorder F41.1 Active Problem 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 Assessment Encounter for immunization Z23 Active Assessment Pain in joint, multiple sites 719.49 Active Assessment Cervical lymphadenopathy R59.0 Active Problem Impotence of organic origin 607.84 Active Medications Medication Code System Code Instructions Start Date End Date Status Dosage Xanax [facility] [address]-47 2 MG Orally Three times a day October 21, 2014 1 tablet Zoloft [facility] [address]-76 100 MG Orally Once a day Sep 18, 2014 1.5 tablet Hydrochlorothiazide [facility] [address]-87 50 mg January 08, 2014 1 Tablet by Oral route 1 time per day PRN edema Ventolin HFA [facility] [address]-55 90 mcg/actuation December 19, 2012 2 Inhaler by Inhalation route every 4-6 hours PRN Amlodipine Besylate [facility] [address]-58 5 MG Orally Once a day December 29, 2014 1 tablet Levothyroxine Sodium [facility] 77593171814 88 MCG TAKE ONE TABLET BY MOUTH DAILY Aciphex [facility] [address]-18 20 mg October 23, 2013 1 tablet by Oral route 1 time per day Klor-Con M20 [facility] [address]-87 20 mEq February 02, 2014 2 Tablet by Oral route 1 time per day Pepcid [facility] [address]-43 20 MG Orally Once a day Jul 03, 2014 1 tablet at bedtime Vitamin D2 [facility] 45086-[address]26 50,000 unit Orally January 29, 2013 take 1 capsule (50,000 unit) by oral route once weekly for 12 weeks Flonase [facility] [address]-17 50 mcg/actuation Mar 17, 2014 1 sprays by Nasal route 2 times per day in each nostril methadone NDC 0 10 mg oral, Chronic pain every 8 hours November 06, 2014 2 tablet HydrOXYzine HCl [facility] [address]-27 10 MG Orally 3 times a day Jun 23, 2015 as directed MiraLax [facility] [address]-13 17 gram/dose Orally Once a day prn December 16, 2013 take 8.5 g mixed with 8 oz. water or juice by Oral route 1 time per day PRN constipation Procedures Procedure Coding System Code Date RHEUMATOID FACTOR, QUANT CPT-4 83443 Jul 05, 2015 VENIPUNCT, ROUTINE* CPT-4 69590 Jul 05, 2015 RBC SED RATE, AUTOMATED CPT-4 76747 Jul 05, 2015 SINGLE IMMUNIZATION ADMIN CPT-4 96667 Jul 05, 2015 FLUARIX QUAD (3 & UP)-GSK-2014 CPT-4 06659 Jul 05, 2015 Office Visit, Est Pt., Level 3 CPT-4 46803 Jul 05, 2015 Vital Signs Date/Time: Jul 05, 2015 Temperature 98.3 F Weight 252.7 lbs Height 69 in BMI 37.31 Index Blood Pressure Diastolic 90 mmHg Blood Pressure Systolic 158 mmHg Cardiac Monitoring Heart Rate 100 bpm Results Name Result Date Reference Range Unit Abnormality Flag RA (RHEUMATOID) FACTOR ----RA Latex Turbid. <10.0 [id number] 0.0-13.9 IU/mL ROUTINE VENIPUNCTURE ESR/SED RATE ----Sedimentation Rate-Westergren 25 [id number] 0-30 mm/hr Immunizations Vaccine Administration Date FLUARIX QUAD (3 & UP)-GSK-2014Jul 05, 2015 Summary Purpose eClinicalWorks Submission
--- OUTSIDE RECORDS SUMMARY | 2017-09-18 10:06 | XMS REPORT ---
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 Assessment Encounter for immunization Z23 Active Problem Impotence of organic origin 607.84 Active Problem Head and neck cancer C76.0 Active Problem COPD (chronic obstructive pulmonary disease) J44.9 Active Problem Adverse effect of other opioids, initial encounter T40.2X5A Active Problem Hypertension I10 Active Problem Major depressive disorder, recurrent episode, moderate F33.1 Active Problem Arthritis M19.90 Active Problem Arthralgia, unspecified joint M25.50 Active Medications No Known Medications Procedures Procedure Coding System Code Date SINGLE IMMUNIZATION ADMIN CPT-4 38619 Jun 30, 2016 PPV23 (PNEUMOVAX) CPT-4 62191 Jun 30, 2016 Results No Known Results Immunizations Vaccine Administration Date PPV23 (PNEUMOVAX) Jun 30, 2016 Summary Purpose eClinicalWorks Submission
--- OUTSIDE RECORDS SUMMARY | 2017-09-18 10:07 | XMS REPORT ---
Author Author FRANCA SÁNCHEZ [facility] eClinicalWorks Address Unknown Phone Unavailable Care Team Providers Care Equipment Associate Name Role Phone FRANCA SÁNCHEZ CP Unavailable [...] pain every 8 hours November 06, 2014 3 tablets Results No Known Results Summary Purpose eClinicalWorks Submission
--- OUTSIDE RECORDS SUMMARY | 2017-09-18 10:07 | XMS REPORT ---
Author Author FRANCA SÁNCHEZ Organization eClinicalWorks Address Unknown Phone Unavailable Care Team Providers Care Form Maker Name Role Phone FRANCA SÁNCHEZ CP Unavailable [...]
--- OUTSIDE RECORDS SUMMARY | 2017-09-18 10:07 | XMS REPORT ---
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 14633522 Problem Arthritis M19.90 Active 4680778 Problem History of elevated PSA Z87.898 Active 530636934 Problem COPD (chronic obstructive pulmonary disease) J44.9 Active 13307427 Problem Arthralgia, unspecified joint M25.50 Active 45275596 Problem Adverse effect of other opioids, initial encounter T40.2X5A Active 435834644 Problem Head and neck cancer C76.0 Active 302912863 ALLERGIES No Information SOCIAL HISTORY Never Assessed PLAN OF CARE VITAL SIGNS MEDICATIONS Medication Instructions Dosage Frequency Start Date End Date Duration Status Methadone HCl 10 MG Orally every 8 hrs 3 tab 8h Sep, Active methadone 10 mg oral, Chronic pain every 8 hours 3 tablets 8h Oct, Active RESULTS No Results PROCEDURES No Known procedures IMMUNIZATIONS No Known Immunizations MEDICAL (GENERAL) HISTORY [...]
--- OUTSIDE RECORDS SUMMARY | 2017-09-18 10:07 | XMS REPORT ---
Author Author FRANCA SÁNCHEZ [facility] eClinicalWorks Address Unknown Phone Unavailable Care Team Providers Care Quality Technician Fiberglass Name Role Phone FRANCA SÁNCHEZ CP Unavailable Allergies No Known Allergies Problems Problem Type Condition Code Onset Dates Condition Status Problem Major depressive disorder, recurrent episode, moderate 296.32 Active Problem Unspecified hereditary and idiopathic peripheral neuropathy 356.9 Active Problem Gout, unspecified 274.9 Active Problem Cervical lymphadenopathy R59.0 Active Problem Hypertension I10 Active Problem Arthritis M19.90 Active Problem 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 Problem Other emphysema 492.8 Active Problem Major depressive disorder, recurrent episode, moderate F33.1 Active Problem Generalized anxiety disorder F41.1 Active Assessment Cough R05 Active Problem Impotence of 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
--- OUTSIDE RECORDS SUMMARY | 2017-09-18 10:07 | XMS REPORT ---
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 Assessment Chronic urticaria L50.8 Active Assessment Cervical lymphadenopathy R59.0 Active Problem Impotence of organic origin 607.84 Active Medications Medication Code System Code Instructions Start Date End Date Status Dosage Amlodipine Besylate [facility] [address]-58 5 MG Orally Once a day December 29, 2014 1 tablet Aciphex [facility] [address]-54 20 mg October 23, 2013 1 tablet by Oral route 1 time per day MiraLax [facility] [address]-03 17 gram/dose Orally Once a day prn December 16, 2013 take 8.5 g mixed with 8 oz. water or juice by Oral route 1 time per day PRN constipation Flonase [facility] [address]-77 50 mcg/actuation Mar 17, 2014 1 sprays by Nasal route 2 times per day in each nostril Levothyroxine Sodium [facility] 93635005697 88 MCG TAKE ONE TABLET BY MOUTH DAILY Hydrochlorothiazide [facility] [address]-45 50 mg January 08, 2014 1 Tablet by Oral route 1 time per day PRN edema Xanax [facility] [address]-08 2 MG Orally Three times a day October 21, 2014 1 tablet Vitamin D2 [facility] [address] 50,000 unit Orally January 29, 2013 take 1 capsule (50,000 unit) by oral route once weekly for 12 weeks Bactrim DS [facility] [address]-31 800-160 MG Orally 2 times a day Jun 23, 2015 Jul 03, 2015 1 tablet HydrOXYzine HCl [facility] [address]-85 10 MG Orally 3 times a day Jun 23, 2015 as directed Pepcid [facility] [address]-95 20 MG Orally Once a day Jul 03, 2014 1 tablet at bedtime methadone [place] 0 10 mg oral, Chronic pain every 8 hours November 06, 2014 2 tablet Ventolin HFA [facility] [address]-34 90 mcg/actuation December 19, 2012 2 Inhaler by Inhalation route every 4-6 hours PRN Klor-Con M20 [facility] [address]-89 20 mEq February 02, 2014 2 Tablet by Oral route 1 time per day Zoloft [facility] [address]-96 100 MG Orally Once a day Sep 18, 2014 1.5 tablet Procedures Procedure Coding System Code Date Office Visit, Est Pt., Level 3 CPT-4 92364 Jun 23, 2015 Vital Signs Date/Time: Jun 23, 2015 Temperature 98.3 F Weight 252.8 lbs Height 69 in BMI 37.33 Index Blood Pressure Diastolic 88 mmHg Blood Pressure Systolic 122 mmHg Cardiac Monitoring Heart Rate 78 bpm Results No Known Results Summary Purpose eClinicalWorks Submission
--- OUTSIDE RECORDS SUMMARY | 2017-09-18 10:07 | XMS REPORT ---
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 89756947 Problem Arthritis M19.90 Active 9509728 Problem History of elevated PSA Z87.898 Active 900967091 Problem COPD (chronic obstructive pulmonary disease) J44.9 Active 88996755 Problem Arthralgia, unspecified joint M25.50 Active 45813664 Problem Adverse effect of other opioids, initial encounter T40.2X5A Active 550626587 Problem Head and neck cancer C76.0 Active 638195470 ALLERGIES No Information SOCIAL HISTORY Never Assessed PLAN OF CARE VITAL SIGNS MEDICATIONS Medication Instructions Dosage Frequency Start Date End Date Duration Status Methadone HCl 10 mg Orally every 8 hrs 3 tablet 8h December, 28 days Active RESULTS No Results PROCEDURES No Known procedures IMMUNIZATIONS No Known Immunizations MEDICAL (GENERAL) HISTORY Type Description Date Medical History allergic rhinitis Medical History hypertension Medical History Hypothyroidism Medical History Arthritis Medical History seizures r/t low K+ (06/2008) Medical History chronic pain-low back Medical History dyssomnia Medical History fibromyalgia Medical History restless leg syndrome Medical History tumor under tongue Medical History [place] therapy cognitive impairment Surgical History cholecystectomy 11/2009 Surgical History spinal fusion L5-S1 with hardware 03/2003 Surgical History arthroscopic knee surgery Surgical History appendectomy 11/2009 Surgical History Bronchoscopy 2011 Surgical History feeding tube placement 08/28 Surgical History PICC line placement Hospitalization History Pneumonia 2011 Hospitalization History Back surgery 03/2003 Hospitalization History appendectomy 11/2009
--- OUTSIDE RECORDS SUMMARY | 2017-09-18 10:08 | XMS REPORT ---
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 Problem Gout, unspecified 274.9 Active Assessment Head and neck cancer C76.0 Active Assessment Arthritis M19.90 Active Problem COPD (chronic obstructive pulmonary disease) J44.9 Active Problem Arthritis M19.90 Active Problem Head and neck cancer C76.0 Active Problem Major depressive disorder, recurrent episode, moderate F33.1 Active Problem Generalized anxiety disorder F41.1 Active Problem Cervical lymphadenopathy R59.0 Active Problem Hypertension I10 Active Medications Medication Code System Code Instructions Start Date End Date Status Dosage HydrOXYzine HCl [facility] [address]-48 10 MG Orally 3 times a day Jun 23, 2015 as directed Klor-Con M20 [facility] [address]-77 20 mEq February 02, 2014 2 Tablet by Oral route 1 time per day Pepcid [facility] [address]-44 20 MG Orally Once a day Jul 03, 2014 1 tablet at bedtime methadone [place] 0 10 mg oral, Chronic pain every 8 hours November 06, 2014 2 tablet Aciphex [facility] [address]-66 20 mg October 23, 2013 1 tablet by Oral route 1 time per day Hydrochlorothiazide [facility] [address]-71 50 mg January 08, 2014 1 Tablet by Oral route 1 time per day PRN edema Xanax [facility] [address]-26 2 MG Orally Three times a day October 21, 2014 1 tablet Levothyroxine Sodium [facility] 71760659785 88 MCG TAKE ONE TABLET BY MOUTH DAILY Vitamin D2 [facility] 97769-[address]46 50,000 unit Orally January 29, 2013 take 1 capsule (50,000 unit) by oral route once weekly for 12 weeks Ventolin HFA [facility] [address]-83 90 mcg/actuation December 19, 2012 2 Inhaler by Inhalation route every 4-6 hours PRN Amlodipine Besylate [facility] [address]-35 5 MG Orally Once a day December 29, 2014 1 tablet Zoloft [facility] [address]-17 100 MG Orally Once a day Sep 18, 2014 1.5 tablet MiraLax [facility] [address]-52 17 gram/dose Orally Once a day prn December 16, 2013 take 8.5 g mixed with 8 oz. water or juice by Oral route 1 time per day PRN constipation Procedures Procedure Coding System Code Date Office Visit, Est Pt., Level 2 CPT-4 41094 Sep 09, 2015 Vital Signs Date/Time: Sep 09, 2015 Temperature 97.1 F Weight 254.8 lbs Height 69 in BMI 37.62 Index Blood Pressure Diastolic 88 mmHg Blood Pressure Systolic 142 mmHg Cardiac Monitoring Heart Rate 64 bpm Results No Known Results Summary Purpose eClinicalWorks Submission
--- OUTSIDE RECORDS SUMMARY | 2017-09-18 10:08 | XMS REPORT ---
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
--- OUTSIDE RECORDS SUMMARY | 2017-09-18 10:08 | XMS REPORT ---
Author Author PABLO CALLAHAN [facility] eClinicalWorks Address Unknown Phone Unavailable Care Team Providers Care Harbor Pilot Name Role Phone PABLO CALLAHAN Unavailable Allergies, Adverse Reactions, Alerts Substance Reaction Event Type Penicillin V Potassium Info Not Available Drug Allergy Mobic Info Not Available Drug Allergy Lipitor Info Not Available Drug Allergy Problems Problem Type Condition Code Onset Dates Condition Status Problem Other hammer toe (acquired) 735.4 Active Problem Gout, unspecified 274.9 Active Problem Major depressive disorder, recurrent episode, moderate 296.32 Active Problem Generalized anxiety disorder F41.1 Active Problem 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 Problem Major depressive disorder, recurrent episode, moderate F33.1 Active Problem Unspecified hereditary and idiopathic peripheral neuropathy 356.9 Active Problem Major depressive disorder, recurrent episode, in full remission 296.36 Active Problem Other emphysema 492.8 Active Problem Allergic rhinitis, cause unspecified 477.9 Active Assessment Major depressive disorder, recurrent episode, moderate F33.1 Active Assessment MINDA (generalized anxiety disorder) F41.1 Active Assessment 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 water or juice by Oral route 1 time per day PRN constipation Xanax [facility] [place] 2] [address]-53 2 MG Orally Three times a day October 21, 2014 1 tablet Amlodipine Besylate [facility] [place]NOTE 2] [address]-50 5 MG Orally Once a day December 29, 2014 1 tablet Aciphex [facility] [place]NOTE 2] [address]-22 20 mg October 23, 2013 1 tablet by Oral route 1 time per day Singulair [facility] [place]NOTE 2] [address]-70 10 MG Orally Once a day Apr 26, 2015 1 tablet in the evening Flonase [facility] [place]NOTE 2] [address]-01 50 mcg/actuation Mar 17, 2014 1 sprays by Nasal route 2 times per day in each nostril Hydrochlorothiazide [facility] [place]NOTE 2] [address]-06 50 mg January 08, 2014 1 Tablet by Oral route 1 time per day PRN edema Pepcid [facility] [place]NOTE 2] [address]-09 20 MG Orally Once a day Jul 03, 2014 1 tablet at bedtime Vitamin D2 [facility] [place]NOTE 2] 46[address]-23121 50,000 unit Orally January 29, 2013 take 1 capsule (50,000 unit) by oral route once weekly for 12 weeks Ventolin HFA [facility] [place]NOTE 2] [address]-29 90 mcg/actuation December 19, 2012 2 Inhaler by Inhalation route every 4-6 hours PRN Zoloft [facility] [place]NOTE 2] [address]-75 100 MG Orally Once a day Sep 18, 2014 1.5 tablet methadone NDC 0 10 mg oral, Chronic pain every 8 hours November 06, 2014 2 tablet Klor-Con M20 [facility] [place]NOTE 2] [address]-82 20 mEq February 02, 2014 2 Tablet by Oral route 1 time per day Procedures Procedure Coding System Code Date Office Visit, Rossy Pt., Level 3 CPT-4 05977 May 21, 2015 Vital Signs Date/Time: May 21, 2015 Cardiac Monitoring Heart Rate 76 bpm Weight 253.6 lbs Height 69 in BMI 37.45 Index Blood Pressure Diastolic 90 mmHg Blood Pressure Systolic 145 mmHg Results No Known Results Summary Purpose eClinicalWorks Submission
--- OUTSIDE RECORDS SUMMARY | 2017-09-18 10:08 | XMS REPORT ---
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 00798244 Problem Arthritis M19.90 Active 9027661 Problem History of elevated PSA Z87.898 Active 212697546 Problem COPD (chronic obstructive pulmonary disease) J44.9 Active 12098938 Problem Arthralgia, unspecified joint M25.50 Active 98707081 Problem Adverse effect of other opioids, initial encounter T40.2X5A Active 611973428 Problem Head and neck cancer C76.0 Active 031134591 ALLERGIES No Information SOCIAL HISTORY Never Assessed PLAN OF CARE VITAL SIGNS MEDICATIONS Medication Instructions Dosage Frequency Start Date End Date Duration Status Methadone HCl 10 MG Orally every 8 hrs 3 8h 17 Oct, 2016 Nov, 28 days Active RESULTS No Results PROCEDURES [...]
--- OUTSIDE RECORDS SUMMARY | 2017-09-18 10:08 | XMS REPORT ---
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 Assessment Generalized anxiety disorder F41.1 Active Problem Arthritis M19.90 Active Problem Cervical lymphadenopathy R59.0 Active Problem COPD (chronic obstructive pulmonary disease) J44.9 Active Problem Generalized anxiety disorder F41.1 Active Problem 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
--- OUTSIDE RECORDS SUMMARY | 2017-09-18 10:08 | XMS REPORT ---
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
--- OUTSIDE RECORDS SUMMARY | 2017-09-18 10:09 | XMS REPORT ---
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 04252295 Problem Arthritis M19.90 Active 4588688 Problem History of elevated PSA Z87.898 Active 317742049 Problem COPD (chronic obstructive pulmonary disease) J44.9 Active 19519161 Problem Arthralgia, unspecified joint M25.50 Active 22947358 Problem Adverse effect of other opioids, initial encounter T40.2X5A Active 287203614 Problem Head and neck cancer C76.0 Active 723333536 ALLERGIES No Information SOCIAL HISTORY Never Assessed PLAN OF CARE VITAL SIGNS MEDICATIONS Medication Instructions Dosage Frequency Start Date End Date Duration Status Zoloft 100 mg Orally Once a day 1 tablet 24h Oct, 30 day(s) Active RESULTS No Results PROCEDURES No Known [...]
--- OUTSIDE RECORDS SUMMARY | 2017-09-18 10:09 | XMS REPORT ---
Author Author FRANCA SÁNCHEZ Organization eClinicalWorks Address Unknown Phone Unavailable Care Team Providers Care Cement Or Concrete Finishing Supervisor Name Role Phone FRANCA SÁNCHEZ CP Unavailable [...]
--- OUTSIDE RECORDS SUMMARY | 2017-09-18 10:09 | XMS REPORT ---
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 Problem Head and neck cancer C76.0 Active Problem COPD (chronic obstructive pulmonary disease) J44.9 Active Problem Adverse effect of other opioids, initial encounter T40.2X5A Active Problem Hypertension I10 Active Problem Major depressive disorder, recurrent episode, moderate F33.1 Active Problem Arthritis M19.90 Active Problem Arthralgia, unspecified joint M25.50 Active Assessment 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
--- OUTSIDE RECORDS SUMMARY | 2017-09-18 10:09 | XMS REPORT ---
Author Author PABLO CALLAHAN Organization eClinicalWorks Address Unknown Phone Unavailable Care Team Providers Care Activity Therapist Name Role Phone PABLO CALLAHAN Unavailable Allergies No Known Allergies Problems Problem [...] Problem Allergic rhinitis, cause unspecified 477.9 Active Problem Essential hypertension, benign 401.1 Active Problem Impotence of organic origin 607.84 Active Problem Unspecified urticaria 708.9 Active Problem Family history of malignant neoplasm, unspecified genital organ V16.40 Active Problem Unspecified viral hepatitis C without hepatic coma 070.70 Active Problem Pain in joint, multiple sites 719.49 Active Medications Medication Code System Code Instructions Start Date End Date Status Dosage Xanax [facility] [address]-55 2 MG Orally Three times a day October 21, 2014 1 tablet Results No Known Results Summary Purpose eClinicalWorks Submission
--- OUTSIDE RECORDS SUMMARY | 2017-09-18 10:09 | XMS REPORT ---
Author Author FRANCA SÁNCHEZ [facility] eClinicalWorks Address Unknown Phone Unavailable Care Team Providers Care Leather Skinner Name Role Phone FRANCA SÁNCHEZ CP Unavailable [...] Problem Generalized anxiety disorder F41.1 Active Assessment Arthritis M19.90 Active Assessment Bronchitis J40 Active Problem Impotence of organic origin 607.84 Active Problem Pain in joint, multiple sites 719.49 Active Medications Medication Code System Code Instructions Start Date End Date Status Dosage HydrOXYzine HCl [facility] [address]-59 10 MG Orally 3 times a day Jun 23, 2015 as directed methadone NDC 0 10 mg oral, Chronic pain every 8 hours November 06, 2014 2 tablet Flonase NDC 0 50 mcg/actuation Mar 17, 2014 1 sprays by Nasal route 2 times per day in each nostril Levothyroxine Sodium [facility] 72118086455 88 MCG TAKE ONE TABLET BY MOUTH DAILY PredniSONE [facility] [address]-08 20 MG Orally Once a day Jul 22, 2015 as directed Diclofenac Sodium [facility] [address]-18 75 MG Orally 2 times a day, pc Jul 06, 2015 1 tablet Hydrochlorothiazide [facility] [address]-41 50 mg January 08, 2014 1 Tablet by Oral route 1 time per day PRN edema Aciphex [facility] [address]-44 20 mg October 23, 2013 1 tablet by Oral route 1 time per day Pepcid [facility] [address]-01 20 MG Orally Once a day Jul 03, 2014 1 tablet at bedtime Vitamin D2 [facility] 90993-05514 50,000 unit Orally January 29, 2013 take 1 capsule (50,000 unit) by oral route once weekly for 12 weeks Anastacia Merlos [facility] [address]-66 100 MG Orally Three times a day Jul 17, 2015 Jul 22, 2015 1 capsule as needed Amlodipine Besylate [facility] [address]-09 5 MG Orally Once a day December 29, 2014 1 tablet MiraLax [facility] [address]-57 17 gram/dose Orally Once a day prn December 16, 2013 take 8.5 g mixed with 8 oz. water or juice by Oral route 1 time per day PRN constipation Klor-Con M20 [facility] [address]-13 20 mEq February 02, 2014 2 Tablet by Oral route 1 time per day Zoloft [facility] [address]-16 100 MG Orally Once a day Sep 18, 2014 1.5 tablet Xanax [facility] [address]-85 2 MG Orally Three times a day October 21, 2014 1 tablet Ventolin HFA [facility] [address]-51 90 mcg/actuation December 19, 2012 2 Inhaler by Inhalation route every 4-6 hours PRN Procedures Procedure Coding System Code Date VENIPUNCT, ROUTINE* CPT-4 38706 Jul 22, 2015 Office Visit, Est Pt., Level 2 CPT-4 32533 Jul 22, 2015 BASIC METABOLIC PANEL CPT-4 73306 Jul 22, 2015 Vital Signs Date/Time: Jul 22, 2015 Temperature 97.0 F Weight 254.1 lbs Height 69 in BMI 37.52 Index Blood Pressure Diastolic 84 mmHg Blood Pressure Systolic 128 mmHg Cardiac Monitoring Heart Rate 64 bpm Results Name Result Date Reference Range Unit Abnormality Flag ROUTINE VENIPUNCTURE BMP ----Calcium, Serum 9.6 20150722 8.7-10.2 mg/dL ----Sodium, Serum 139 20150722 134-144 mmol/L ----BUN/Creatinine Ratio 13 20150722 9-20 ----Chloride, Serum 96 20150722 97-108 mmol/L L ----Carbon Dioxide, Total 32 20150722 18-29 mmol/L H ----Potassium, Serum 4.2 20150722 3.5-5.2 mmol/L ----eGFR If NonAfricn Am 79 [id number] >59 mL/min/1.73 ----eGFR If Africn Am 91 [id number] >59 mL/min/1.73 ----BUN 14 20150722 6-24 mg/dL ----Creatinine, Serum 1.06 20150722 0.76-1.27 mg/dL ----Glucose, Serum 84 48694460 65-99 mg/dL Summary Purpose eClinicalWorks Submission
--- OUTSIDE RECORDS SUMMARY | 2017-09-18 10:09 | XMS REPORT ---
Author Author SUNG LOUIS [facility] eClinicalWorks Address Unknown Phone Unavailable Care Team Providers Care Pig Machine Operator Name Role Phone SUNG LOUIS CP Unavailable Allergies No Known Allergies Problems [...] patient &/family, 45 minutes, established patient CPT-4 94266 Jun 26, 2016 [facility] VISIT MENTAL HEALTH ESTAB PT CPT-4 G0470 Jun 26, 2016 Results No Known Results Summary Purpose eClinicalWorks Submission
--- OUTSIDE RECORDS SUMMARY | 2017-09-18 10:09 | XMS REPORT ---
Author Author SUNG LOUIS 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 19508115 Problem Arthritis M19.90 Active 8034863 Problem History of elevated PSA Z87.898 Active 579888019 Problem COPD (chronic obstructive pulmonary disease) J44.9 Active 33071171 Problem Arthralgia, unspecified joint M25.50 Active 12001616 Problem Adverse effect of other opioids, initial encounter T40.2X5A Active 785499430 Problem Head and neck cancer C76.0 Active 601466126 ALLERGIES Substance Reaction Event Type Date Status Penicillin V Potassium Unknown Drug Allergy Aug, Active Mobic chronic renal failure Drug Allergy Aug, Active Lipitor Unknown Drug Allergy Aug, Active SOCIAL HISTORY No smoking Hx information available PLAN OF CARE Activity Details Follow Up 4 Weeks Reason:BH F/U VITAL SIGNS MEDICATIONS Unknown Medications RESULTS No Results PROCEDURES Procedure Date Ordered Related Diagnosis Body Site [facility] VISIT MENTAL HEALTH ESTAB PT Aug 24, 2016 Psychotherapy, patient &/family, 45 minutes, established patient Aug 24, 2016 IMMUNIZATIONS No Known Immunizations
--- OUTSIDE RECORDS SUMMARY | 2017-09-18 10:09 | XMS REPORT ---
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 20892653 Problem Arthritis M19.90 Active 3771593 Problem History of elevated PSA Z87.898 Active 244245709 Problem COPD (chronic obstructive pulmonary disease) J44.9 Active 72206049 Problem Arthralgia, unspecified joint M25.50 Active 09031126 Problem Adverse effect of other opioids, initial encounter T40.2X5A Active 798037195 Problem Head and neck cancer C76.0 Active 129930393 ALLERGIES No Information SOCIAL HISTORY Never Assessed PLAN OF CARE Activity Details Follow Up 4 Weeks Reason:BH F/U VITAL SIGNS MEDICATIONS Unknown Medications RESULTS No Results PROCEDURES Procedure Date Ordered Result Body Site [facility] VISIT MENTAL HEALTH ESTAB PT December 20, 2016 Psychotherapy, patient &/family, 45 minutes, established patient December 20, 2016 IMMUNIZATIONS No Known Immunizations MEDICAL (GENERAL) [...]
--- OUTSIDE RECORDS SUMMARY | 2017-09-18 10:09 | XMS REPORT ---
Author Author FARNCA SÁNCHEZ [facility] eClinicalWorks Address Unknown Phone Unavailable Care Team Providers Care Cash Management Specialist Name Role Phone FRANCA SÁNCHEZ CP Unavailable [...] Instructions Start Date End Date Status Dosage Alprazolam [facility] [address]-91 2 MG Orally 3 times a day as needed for anxiety 1 tablet Results No Known Results Summary Purpose eClinicalWorks Submission
--- OUTSIDE RECORDS SUMMARY | 2017-09-18 10:09 | XMS REPORT ---
Author Author FRANCA SÁNCHEZ [facility] eClinicalWorks Address Unknown Phone Unavailable Care Team Providers Care Pulp Plant Supervisor Name Role Phone FRANCA SÁNCHEZ CP [...] Active Problem Other emphysema 492.8 Active Assessment Screening Z13.9 Active Assessment Vitamin D deficiency E55.9 Active Assessment Urticaria L50.9 Active Assessment Hypertension I10 Active Medications Medication Code System Code Instructions Start Date End Date Status Dosage Hydrochlorothiazide [facility] [address]-16 50 mg January 08, 2014 1 Tablet by Oral route 1 time per day PRN edema Ventolin HFA [facility] [address]-36 90 mcg/actuation December 19, 2012 2 Inhaler by Inhalation route every 4-6 hours PRN MiraLax [facility] [address]-14 17 gram/dose Orally Once a day prn December 16, 2013 take 8.5 g mixed with 8 oz. water or juice by Oral route 1 time per day PRN constipation Klor-Con M20 [facility] [address]-78 20 mEq February 02, 2014 2 Tablet by Oral route 1 time per day Flonase [facility] [address]-87 50 mcg/actuation Mar 17, 2014 1 sprays by Nasal route 2 times per day in each nostril Amlodipine Besylate [facility] [address]-28 5 MG Orally Once a day December 29, 2014 1 tablet Aciphex [facility] [address]-15 20 mg October 23, 2013 1 tablet by Oral route 1 time per day Vitamin D2 [facility] 58[address]-92965 50,000 unit Orally January 29, 2013 take 1 capsule (50,000 unit) by oral route once weekly for 12 weeks Zoloft [facility] [address]-16 100 MG Orally Once a day Sep 18, 2014 1.5 tablet Pepcid [facility] [address]-68 20 MG Orally Once a day Jul 03, 2014 1 tablet at bedtime Levothyroxine Sodium [facility] 96336968808 88 MCG TAKE ONE TABLET BY MOUTH DAILY Xanax [facility] [address]-80 2 MG Orally Three times a day October 21, 2014 1 tablet methadone [facility] 0 10 mg oral, Chronic pain every 8 hours November 06, 2014 2 tablet Procedures Procedure Coding System Code Date Office Visit, Est Pt., Level 4 CPT-4 88391 Jun 14, 2015 ASSAY OF PSA, TOTAL CPT-4 82287 Jun 14, 2015 Vital Signs Date/Time: Jun 14, 2015 Temperature 98.0 F Weight 251 lbs Height 69 in BMI 37.06 Index Blood Pressure Diastolic 88 mmHg Blood Pressure Systolic 132 mmHg Cardiac Monitoring Heart Rate 70 bpm Results No Known Results Summary Purpose eClinicalWorks Submission
--- OUTSIDE RECORDS SUMMARY | 2017-09-18 10:09 | XMS REPORT ---
Author Author FRANCA SÁNCHEZ Organization eClinicalWorks Address Unknown Phone Unavailable Care Team Providers Care Manager Of Security Name Role Phone FRANCA SÁNCHEZ CP Unavailable Allergies No Known Allergies Problems Problem Type Condition Code Onset Dates Condition Status Problem Impotence of organic origin 607.84 Active Problem Major depressive disorder, recurrent episode, moderate 296.32 Active Problem Pain in joint, multiple sites 719.49 Active Assessment Screening Z13.9 Active Assessment Hypertension I10 Active Problem Major depressive disorder, recurrent episode, moderate F33.1 Active Problem Generalized anxiety disorder F41.1 Active Problem Hypertension I10 Active Problem Unspecified hereditary and idiopathic peripheral neuropathy 356.9 Active Problem Gout, unspecified 274.9 Active Problem 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
--- OUTSIDE RECORDS SUMMARY | 2017-09-18 10:09 | XMS REPORT ---
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 59140952 Problem Major depressive disorder, recurrent episode, moderate F33.1 Active 924739783 Problem Generalized anxiety disorder F41.1 Active 39683576 Assessment Arthritis M19.90 Apr, Active 2598918 Problem Impotence of organic origin 607.84 Active 093445483 Problem Gout, unspecified 274.9 Active 78515527 Problem Adverse effect of other opioids, initial encounter T40.2X5A Active 670619976 Problem Head and neck cancer C76.0 Active 547262046 Problem Arthralgia, unspecified joint M25.50 Active 21242873 Problem Hypertension I10 Active 98845356 Problem COPD (chronic obstructive pulmonary disease) J44.9 Active 44010273 Problem Arthritis M19.90 Active 1617766 ALLERGIES Substance Reaction Event Type Date Status Penicillin V Potassium Unknown Drug Allergy Apr, Active Mobic chronic renal failure Drug Allergy Apr, Active Lipitor Unknown Drug Allergy Apr, Active SOCIAL HISTORY No smoking Hx information available PLAN OF CARE VITAL SIGNS Height 69 in 2016-04-18 Weight 211.4 lbs 2016-04-18 Heart Rate 68 bpm 2016-04-18 Respiratory Rate 18 2016-04-18 BMI 31.21 kg/m2 2016-04-18 Blood pressure systolic 120 mmHg 2016-04-18 Blood pressure diastolic 90 mmHg 2016-04-18 MEDICATIONS Medication Instructions Dosage Frequency Start Date End Date Duration Status Pepcid 20 MG Orally Once a day 1 tablet at bedtime 24h Jun, Active methadone 10 mg oral, Chronic pain every 8 hours 3 8h Oct, Active HydrOXYzine HCl 10 MG Orally 3 times a day as directed 8h Jun, 14 days Active Klor-Con M20 20 mEq 2 Tablet by Oral route 1 time per day Jan, Active Zoloft 100 MG Orally Once a day 2 tablets 24h Sep, Active MiraLax 17 gram/dose Orally Once a day prn take 8.5 g mixed with 8 oz. water or juice by Oral route 1 time per day PRN constipation December,Aug 30 days Active Hydrochlorothiazide 50 mg 1 Tablet by Oral route 1 time per day PRN edema December, Active Levothyroxine Sodium 75 MCG TAKE ONE TABLET BY MOUTH DAILY Active Ventolin HFA 90 mcg/actuation 2 Inhaler by Inhalation route every 4-6 hours PRN December, Active Flonase 50 mcg/actuation 1 sprays by Nasal route 2 times per day in each nostril Mar, Active Aciphex 20 MG TAKE ONE TABLET BY MOUTH DAILY 30 Active Sertraline HCl 100 MG Orally Once a day 2 tablet 24h Oct, 30 day(s) Active Alprazolam 2 MG Orally 3 times a day as needed for anxiety 1 tablet Active RESULTS No Results PROCEDURES Procedure Date Ordered Related Diagnosis Body Site Office Visit, Est Pt., Level 3 Apr 18, 2016 IMMUNIZATIONS No Known Immunizations
--- OUTSIDE RECORDS SUMMARY | 2017-09-18 10:10 | XMS REPORT ---
Author Author SVETLANA PALMER [facility] eClinicalWorks Address Unknown Phone Unavailable Care Team Providers Care Manager Camp Name Role Phone SVETLANA PALMER Unavailable Allergies, Adverse Reactions, Alerts Substance Reaction [...] Problem Generalized anxiety disorder F41.1 Active Assessment Shortness of breath R06.02 Active Assessment Wheezing R06.2 Active Problem Impotence of organic origin 607.84 Active Problem Pain in joint, multiple sites 719.49 Active Medications Medication Code System Code Instructions Start Date End Date Status Dosage Xanax [facility] [address]-68 2 MG Orally Three times a day October 21, 2014 1 tablet MiraLax [facility] [address]-69 17 gram/dose Orally Once a day prn December 16, 2013 take 8.5 g mixed with 8 oz. water or juice by Oral route 1 time per day PRN constipation Aciphex [facility] [address]-44 20 mg October 23, 2013 1 tablet by Oral route 1 time per day Ventolin HFA [facility] [address]-06 90 mcg/actuation December 19, 2012 2 Inhaler by Inhalation route every 4-6 hours PRN Amlodipine Besylate [facility] [address]-27 5 MG Orally Once a day December 29, 2014 1 tablet Levothyroxine Sodium [facility] 39726424899 88 MCG TAKE ONE TABLET BY MOUTH DAILY Hydrochlorothiazide [facility] [address]-24 50 mg January 08, 2014 1 Tablet by Oral route 1 time per day PRN edema Pepcid [facility] [address]-77 20 MG Orally Once a day Jul 03, 2014 1 tablet at bedtime Klor-Con M20 [facility] [address]-52 20 mEq February 02, 2014 2 Tablet by Oral route 1 time per day methadone NDC 0 10 mg oral, Chronic pain every 8 hours November 06, 2014 2 tablet Diclofenac Sodium [facility] [address]-97 75 MG Orally 2 times a day, pc Jul 06, 2015 1 tablet Doxycycline Hyclate [facility] [address]-87 100 MG Orally every 12 hrs Jul 29, 2015 Aug 08, 2015 1 capsule Flonase NDC 0 50 mcg/actuation Mar 17, 2014 1 sprays by Nasal route 2 times per day in each nostril Zoloft [facility] [address]-25 100 MG Orally Once a day Sep 18, 2014 1.5 tablet HydrOXYzine HCl [facility] [address]-20 10 MG Orally 3 times a day Jun 23, 2015 as directed Vitamin D2 [facility] [address] 50,000 unit Orally January 29, 2013 take 1 capsule (50,000 unit) by oral route once weekly for 12 weeks Procedures Procedure Coding System Code Date MEASURE BLOOD OXYGEN LEVEL CPT-4 89679 Jul 29, 2015 Office Visit, Est Pt., Level 3 CPT-4 79064 Jul 29, 2015 Vital Signs Date/Time: Jul 29, 2015 Temperature 97.6 F Weight 261.6 lbs Height 69 in Oximetry 95 % Blood Pressure Diastolic 80 mmHg Blood Pressure Systolic 116 mmHg Cardiac Monitoring Heart Rate 66 bpm BMI 38.63 Index Results No Known Results Summary Purpose eClinicalWorks Submission
--- OUTSIDE RECORDS SUMMARY | 2017-09-18 10:10 | XMS REPORT ---
Author Author RAFA CAPONE [facility] eClinicalWorks Address Unknown Phone Unavailable Care Team Providers Care Director Public Policy Name Role Phone RAFA CAPONE CP Unavailable Allergies, Adverse Reactions, Alerts Substance Reaction Event Type Penicillin V Potassium Info Not Available Drug Allergy Mobic Info Not Available Drug Allergy Lipitor Info Not Available Drug Allergy Problems Problem Type Condition ICD-9 Code Onset Dates Condition Status Problem Impotence of organic origin 607.84 Active Problem Pain in joint, multiple sites 719.49 Active Problem Family history of malignant neoplasm, unspecified genital organ V16.40 Active Problem Allergic rhinitis, cause unspecified 477.9 Active Problem Unspecified hereditary and idiopathic peripheral neuropathy 356.9 Active Problem Other emphysema 492.8 Active Problem Major depressive disorder, recurrent episode, moderate 296.32 Active Problem Other hammer toe (acquired) 735.4 Active Problem Major depressive disorder, recurrent episode, in full remission 296.36 Active Problem Gout, unspecified 274.9 Active Assessment Allergic rhinitis 477.9 Active Problem Unspecified urticaria 708.9 Active Problem Unspecified viral hepatitis C without hepatic coma 070.70 Active Assessment Hives 708.9 Active Problem Essential hypertension, benign 401.1 Active Medications Medication Code System Code Instructions Start Date End Date Status Dosage PredniSONE [facility] [address]-54 20 MG Orally Once a day Apr 26, 2015Apr 2 tablet with food or milk MiraLax [facility] [address]-03 17 gram/dose Orally Once a day prn December 16, 2013 take 8.5 g mixed with 8 oz. water or juice by Oral route 1 time per day PRN constipation Zoloft [facility] [address]-27 100 MG Orally Once a day Sep 18, 2014 1 tablet Amlodipine Besylate [facility] [address]-95 5 MG Orally Once a day December 29, 2014 1 tablet Klor-Con M20 [facility] [address]-08 20 mEq February 02, 2014 2 Tablet by Oral route 1 time per day Vitamin D2 [facility] [address] 50,000 unit Orally January 29, 2013 take 1 capsule (50,000 unit) by oral route once weekly for 12 weeks Singulair [facility] [address]-38 10 MG Orally Once a day Apr 26, 2015 1 tablet in the evening methadone ND 0 10 mg oral every 8 hours November 06, 2014 2 tablet Pepcid [facility] [address]-17 20 MG Orally Once a day Jul 03, 2014 1 tablet at bedtime Xanax [facility] [address]-20 2 MG Orally Three times a day October 21, 2014 1 tablet Ventolin HFA [facility] [address]-07 90 mcg/actuation December 19, 2012 2 Inhaler by Inhalation route every 4-6 hours PRN Aciphex [facility] [address]-22 20 mg October 23, 2013 1 tablet by Oral route 1 time per day Procedures Procedure Coding System Code Date Office Visit, Est Pt., Level 3 CPT-4 63477 Apr 26, 2015 Vital Signs Date/Time: Apr 26, 2015 Temperature 97.8 F Weight 256.6 lbs Height 69 in BMI 37.89 Index Blood Pressure Diastolic 76 mmHg Blood Pressure Systolic 128 mmHg Cardiac Monitoring Heart Rate 76 bpm Results No Known Results Summary Purpose eClinicalWorks Submission
--- OUTSIDE RECORDS SUMMARY | 2017-09-18 10:10 | XMS REPORT ---
Author Author FRANCA SÁNCHEZ Organization eClinicalWorks Address Unknown Phone Unavailable Care Team Providers Care Polymerization Engineer Name Role Phone FRANCA SÁNCHEZ CP Unavailable [...]
--- OUTSIDE RECORDS SUMMARY | 2017-09-18 10:10 | XMS REPORT ---
Author Author FRANCA SÁNCHEZ [facility] eClinicalWorks Address Unknown Phone Unavailable Care Team Providers Care Wound Care Specialist Name Role Phone FRANCA SÁNCHEZ CP Unavailable Allergies, Adverse Reactions, Alerts Substance Reaction Event Type Penicillin V Potassium Info Not Available Drug Allergy Mobic Info Not Available Drug Allergy Lipitor Info Not Available Drug Allergy Problems Problem Type Condition Code Onset Dates Condition Status Assessment COPD (chronic obstructive pulmonary disease) J44.9 Active Problem Gout, unspecified 274.9 Active Problem [...] Instructions Start Date End Date Status Dosage Klor-Con M20 [facility] [address]-32 20 mEq February 02, 2014 2 Tablet by Oral route 1 time per day Pepcid [facility] [address]-26 20 MG Orally Once a day Jul 03, 2014 1 tablet at bedtime Zoloft [facility] [address]-03 100 MG Orally Once a day Sep 18, 2014 1.5 tablet Flonase NDC 0 50 mcg/actuation Mar 17, 2014 1 sprays by Nasal route 2 times per day in each nostril HydrOXYzine HCl [facility] [address]-71 10 MG Orally 3 times a day Jun 23, 2015 as directed Ventolin HFA [facility] [address]-55 90 mcg/actuation December 19, 2012 2 Inhaler by Inhalation route every 4-6 hours PRN Xanax [facility] [address]-91 2 MG Orally Three times a day October 21, 2014 1 tablet Diclofenac Sodium [facility] [address]-33 75 MG Orally 2 times a day, pc Jul 06, 2015 1 tablet methadone NDC 0 10 mg oral, Chronic pain every 8 hours November 06, 2014 2 tablet Hydrochlorothiazide [facility] [address]-73 50 mg January 08, 2014 1 Tablet by Oral route 1 time per day PRN edema MiraLax [facility] [address]-52 17 gram/dose Orally Once a day prn December 16, 2013 take 8.5 g mixed with 8 oz. water or juice by Oral route 1 time per day PRN constipation Doxycycline Hyclate [facility] [address]-04 100 MG Orally every 12 hrs Jul 29, 2015 Aug 08, 2015 1 capsule Levothyroxine Sodium [facility] 17600430987 88 MCG TAKE ONE TABLET BY MOUTH DAILY Aciphex [facility] [address]-22 20 mg October 23, 2013 1 tablet by Oral route 1 time per day Vitamin D2 [facility] [address] 50,000 unit Orally January 29, 2013 take 1 capsule (50,000 unit) by oral route once weekly for 12 weeks Amlodipine Besylate [facility] [address]-58 5 MG Orally Once a day December 29, 2014 1 tablet Procedures Procedure Coding System Code Date Office Visit, Est Pt., Level 2 CPT-4 86574 Aug 03, 2015 Vital Signs Date/Time: Aug 03, 2015 Temperature 98.2 F Weight 258.2 lbs Height 69 in BMI 38.13 Index Blood Pressure Diastolic 88 mmHg Blood Pressure Systolic 124 mmHg Cardiac Monitoring Heart Rate 76 bpm Results No Known Results Summary Purpose eClinicalWorks Submission
--- OUTSIDE RECORDS SUMMARY | 2017-09-18 10:10 | XMS REPORT ---
Author Author FRANCA SÁNCHEZ Organization eClinicalWorks Address Unknown Phone Unavailable Care Team Providers Care Electronic System Engineer Name Role Phone FRANCA SÁNCHEZ CP Unavailable Allergies No Known Allergies Problems Problem Type Condition ICD-9 Code Onset [...] 296.36 Active Problem Gout, unspecified 274.9 Active Problem Unspecified urticaria 708.9 Active Problem Unspecified viral hepatitis C without hepatic coma 070.70 Active Problem Essential hypertension, benign 401.1 Active Medications No Known Medications Results No Known Results Summary Purpose eClinicalWorks Submission
--- OUTSIDE RECORDS SUMMARY | 2017-09-18 10:10 | XMS REPORT ---
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
--- OUTSIDE RECORDS SUMMARY | 2017-09-18 10:10 | XMS REPORT ---
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 Problem Impotence of organic origin 607.84 Active Problem COPD (chronic obstructive pulmonary disease) J44.9 Active Problem Arthritis M19.90 Active Problem Head and neck cancer C76.0 Active Problem Hypertension I10 Active Problem Major depressive disorder, recurrent episode, moderate F33.1 Active Problem Arthralgia, unspecified joint M25.50 Active Problem Cervical lymphadenopathy R59.0 Active Medications Medication Code System Code Instructions Start Date End Date Status Dosage Xanax [facility] [address]-91 2 MG Orally Three times a day October 21, 2014 1 tablet Results No Known Results Summary Purpose eClinicalWorks Submission
--- OUTSIDE RECORDS SUMMARY | 2017-09-18 10:11 | XMS REPORT ---
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 65315598 Problem Arthritis M19.90 Active 8983410 Problem History of elevated PSA Z87.898 Active 269659023 Problem COPD (chronic obstructive pulmonary disease) J44.9 Active 89344588 Problem Arthralgia, unspecified joint M25.50 Active 24213861 Problem Adverse effect of other opioids, initial encounter T40.2X5A Active 362939569 Problem Head and neck cancer C76.0 Active 091530536 ALLERGIES Substance Reaction Event Type Date Status Penicillin V Potassium Unknown Drug Allergy Jul, Active Mobic chronic renal failure Drug Allergy Jul, Active Lipitor Unknown Drug Allergy Jul, Active SOCIAL HISTORY No smoking Hx information available PLAN OF CARE Activity Details Follow Up 3 Months Reason: VITAL SIGNS Height 69 in 2016-08-01 Weight 237 lbs 2016-08-01 Temperature 98.0 degrees Fahrenheit 2016-08-01 Heart Rate 78 bpm 2016-08-01 Respiratory Rate 22 2016-08-01 BMI 34.99 kg/m2 2016-08-01 Blood pressure systolic 138 mmHg 2016-08-01 Blood pressure diastolic 98 mmHg 2016-08-01 MEDICATIONS Medication Instructions Dosage Frequency Start Date End Date Duration Status MiraLax 17 gram/dose Orally Once a day prn take 8.5 g mixed with 8 oz. water or juice by Oral route 1 time per day PRN constipation December,Aug 30 days Active Aciphex 20 MG TAKE ONE TABLET BY MOUTH DAILY 30 Active Klor-Con M20 20 mEq Orally Once a day 1 tablet with food 24h Jan, Active Hydrochlorothiazide 50 mg 1 Tablet by Oral route 1 time per day PRN edema December, Active Levothyroxine Sodium 112 MCG Orally Once a day TAKE ONE TABLET BY MOUTH DAILY 24h Active Sertraline HCl 100 MG Orally Once a day 1 tablet 24h Oct, Active methadone 10 mg oral, Chronic pain every 8 hours 3 tablets 8h Oct, Active Pepcid 20 MG Orally Once a day 1 tablet at bedtime 24h Jun, Active Lisinopril 10 mg Orally qd 1 24h Jul, Active Alprazolam 2 MG TAKE ONE TABLET BY MOUTH THREE TIMES DAILY NEEDED FOR ANXIETY 30 Active RESULTS No Results PROCEDURES Procedure Date Ordered Related Diagnosis Body Site [facility] VISIT ESTABLISHED PATIENT Aug 01, 2016 Office Visit, Est Pt., Level 2 Aug 01, 2016 IMMUNIZATIONS No Known Immunizations
--- OUTSIDE RECORDS SUMMARY | 2017-09-18 10:11 | XMS REPORT ---
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
--- OUTSIDE RECORDS SUMMARY | 2017-09-18 10:11 | XMS REPORT ---
Author Author FRANCA SÁNCHEZ Organization eClinicalWorks Address Unknown Phone Unavailable Care Team Providers Care Supervisor Paste Plant Name Role Phone FRANCA SÁNCHEZ CP Unavailable [...]
--- OUTSIDE RECORDS SUMMARY | 2017-09-18 10:11 | XMS REPORT ---
Author Author FRANCA SÁNCHEZ Organization eClinicalWorks Address Unknown Phone Unavailable Care Team Providers Care Business Intelligence Consultant Name Role Phone FRANCA SÁNCHEZ CP Unavailable Allergies No Known Allergies Problems Problem Type Condition Code Onset Dates Condition Status Problem Pain in joint, multiple sites 719.49 Active Problem Gout, unspecified 274.9 Active Problem Major depressive disorder, recurrent episode, moderate 296.32 Active Problem Impotence of organic origin 607.84 Active Problem Hypertension I10 Active Problem Major depressive disorder, recurrent episode, moderate F33.1 Active Problem Cervical lymphadenopathy R59.0 Active Problem Other emphysema 492.8 Active Problem Unspecified hereditary and idiopathic peripheral neuropathy 356.9 Active Problem Generalized anxiety disorder F41.1 Active Problem 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
--- OUTSIDE RECORDS SUMMARY | 2017-09-18 10:12 | XMS REPORT ---
Author FRANCA Velasquez [facility] eClinicalWorks Address Unknown Phone Unavailable Care Team Providers Care Corrective Therapy Aide Name Role Phone FRANCA SÁNCHEZ CP [...] Active Problem Gout, unspecified 274.9 Active Assessment Essential hypertension, benign 401.1 Active Problem Unspecified urticaria 708.9 Active Problem Unspecified viral hepatitis C without hepatic coma 070.70 Active Assessment Pain in joint, multiple sites 719.49 Active Problem Essential hypertension, benign 401.1 Active Medications Medication Code System Code Instructions Start Date End Date Status Dosage Amlodipine Besylate [facility] [address]-49 5 MG Orally Once a day December 29, 2014 1 tablet Xanax [facility] [address]-38 2 MG Orally Three times a day October 21, 2014 1 tablet Aciphex [facility] [address]-75 20 mg October 23, 2013 1 tablet by Oral route 1 time per day Hydrochlorothiazide [facility] [address]-46 50 mg January 08, 2014 1 Tablet by Oral route 1 time per day PRN edema Zoloft [facility] [address]-27 100 MG Orally Once a day Sep 18, 2014 1 tablet Ventolin HFA [facility] [address]-26 90 mcg/actuation December 19, 2012 2 Inhaler by Inhalation route every 4-6 hours PRN Vitamin D2 [facility] [address] 50,000 unit Orally January 29, 2013 take 1 capsule (50,000 unit) by oral route once weekly for 12 weeks Flonase [facility] [address]-17 50 mcg/actuation Mar 17, 2014 1 sprays by Nasal route 2 times per day in each nostril Klor-Con M20 [facility] [address]-13 20 mEq February 02, 2014 2 Tablet by Oral route 1 time per day MiraLax [facility] [address]-44 17 gram/dose December 16, 2013 take 8.5 g mixed with 8 oz. water or juice by Oral route 1 time per day PRN constipation methadone NDC 0 10 mg oral every 8 hours November 06, 2014 2 [address] [facility] [address]-97 20 MG Orally Once a day Jul 03, 2014 1 tablet at bedtime Procedures Procedure Coding System Code Date Office Visit, Est Pt., Level 2 CPT-4 11414 Mar 26, 2015 Vital Signs Date/Time: Mar 26, 2015 Temperature 98.0 F Weight 249 lbs Height 69 in BMI 36.77 Index Blood Pressure Diastolic 74 mmHg Blood Pressure Systolic 132 mmHg Cardiac Monitoring Heart Rate 78 bpm Results No Known Results Summary Purpose eClinicalWorks Submission
--- OUTSIDE RECORDS SUMMARY | 2017-09-18 10:12 | XMS REPORT ---
Author Author FRANCA SÁNCHEZ Organization eClinicalWorks Address Unknown Phone Unavailable Care Team Providers Care Hospice Art Therapist Name Role Phone FRANCA SÁNCHEZ CP Unavailable [...] disorder F60.9 Active Medications No Known Medications Results No Known Results Summary Purpose eClinicalWorks Submission
--- OUTSIDE RECORDS SUMMARY | 2017-09-18 10:12 | XMS REPORT ---
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 80232760 Problem Major depressive disorder, recurrent episode, moderate F33.1 Active 914010530 Problem Generalized anxiety disorder F41.1 Active 63852621 Assessment Major depressive disorder, recurrent episode, moderate F33.1 Apr, Active 47986159 Problem Impotence of organic origin 607.84 Active 949795199 Problem Gout, unspecified 274.9 Active 91581158 Problem Adverse effect of other opioids, initial encounter T40.2X5A Active 544201430 Problem Head and neck cancer C76.0 Active 722567001 Problem Arthralgia, unspecified joint M25.50 Active 59670666 Problem Hypertension I10 Active 47922977 Problem COPD (chronic obstructive pulmonary disease) J44.9 Active 82782595 Problem Arthritis M19.90 Active 3024142 ALLERGIES Unknown Allergies SOCIAL HISTORY No smoking Hx information available PLAN OF CARE VITAL SIGNS MEDICATIONS Unknown Medications RESULTS No Results PROCEDURES Procedure Date Ordered Related Diagnosis Body Site Psychotherapy, patient &/family, 45 minutes, established patient May 09, 2016 IMMUNIZATIONS No Known Immunizations
--- OUTSIDE RECORDS SUMMARY | 2017-09-18 10:12 | XMS REPORT ---
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 32321942 Problem Arthritis M19.90 Active 3953649 Problem History of elevated PSA Z87.898 Active 455871875 Problem COPD (chronic obstructive pulmonary disease) J44.9 Active 92375268 Problem Arthralgia, unspecified joint M25.50 Active 22018872 Problem Adverse effect of other opioids, initial encounter T40.2X5A Active 899394522 Problem Head and neck cancer C76.0 Active 021363603 ALLERGIES Unknown Allergies SOCIAL HISTORY No smoking Hx information available PLAN OF CARE VITAL SIGNS MEDICATIONS Medication Instructions Dosage Frequency Start Date End Date Duration Status methadone 10 mg oral, Chronic pain every 8 hours 3 tablets 8h Oct, Active RESULTS No Results PROCEDURES No Known procedures IMMUNIZATIONS No Known Immunizations
--- OUTSIDE RECORDS SUMMARY | 2017-09-18 10:12 | XMS REPORT ---
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
--- OUTSIDE RECORDS SUMMARY | 2017-09-18 10:12 | XMS REPORT ---
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 Problem Gout, unspecified 274.9 Active Problem COPD (chronic obstructive pulmonary disease) J44.9 Active Problem Arthritis M19.90 Active Problem Head and neck cancer C76.0 Active Problem Major depressive disorder, recurrent episode, moderate F33.1 Active Problem Generalized anxiety disorder F41.1 Active Problem Cervical lymphadenopathy R59.0 Active Problem Hypertension I10 Active Medications Medication Code System Code Instructions Start Date End Date Status Dosage Alprazolam [facility] [address]-05 2 MG Orally 3 times a day as needed for anxiety 1 tablet Results No Known Results Summary Purpose [employer] Submission
--- OUTSIDE RECORDS SUMMARY | 2017-09-18 10:12 | XMS REPORT ---
Author Author FRANCA SÁNCHEZ Organization [employer] Address Unknown Phone Unavailable Care Team Providers Care Motion Picture Projectionist Apprentice Name Role Phone FRANCA SÁNCHEZ CP Unavailable [...]
--- OUTSIDE RECORDS SUMMARY | 2017-09-18 10:12 | XMS REPORT ---
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 51560683 Problem Arthritis M19.90 Active 4678445 Problem History of elevated PSA Z87.898 Active 303364343 Problem COPD (chronic obstructive pulmonary disease) J44.9 Active 20752584 Problem Arthralgia, unspecified joint M25.50 Active 03714522 Problem Adverse effect of other opioids, initial encounter T40.2X5A Active 568239925 Problem Head and neck cancer C76.0 Active 157428581 ALLERGIES No Information SOCIAL HISTORY Never Assessed PLAN OF CARE Activity Details Follow Up 3 Weeks Reason:BH F/U VITAL SIGNS MEDICATIONS Unknown Medications RESULTS No Results PROCEDURES Procedure Date Ordered Result Body Site [facility] VISIT MENTAL HEALTH ESTAB PT Oct 02, 2016 Psychotherapy, patient &/family, 45 minutes, established patient Oct 02, 2016 IMMUNIZATIONS No Known Immunizations MEDICAL (GENERAL) [...]
--- OUTSIDE RECORDS SUMMARY | 2017-09-18 10:12 | XMS REPORT ---
Author Author FRANCA SÁNCHEZ [facility] e[employer]Works Address Unknown Phone Unavailable Care Team Providers Care Rheumatologist Name Role Phone FRANCA SÁNCHEZ CP Unavailable [...] R59.0 Active Problem Hypertension I10 Active Medications No Known Medications Results No Known Results Summary Purpose [employer] Submission
--- OUTSIDE RECORDS SUMMARY | 2017-09-18 10:13 | XMS REPORT ---
Author Author FRANCA SÁNCHEZ [facility] e[employer] Address Unknown Phone Unavailable Care Team Providers Care Log Hauler Name Role Phone FRANCA SÁNCHEZ CP Unavailable [...]
--- OUTSIDE RECORDS SUMMARY | 2017-09-18 10:13 | XMS REPORT ---
Author Author FRANCA SÁNCHEZ Organization [employer] Address Unknown Phone Unavailable Care Team Providers Care Museum Exhibit Designer Name Role Phone FRANCA SÁNCHEZ CP Unavailable [...] Start Date End Date Status Dosage MiraLax [facility] [address]-98 17 gram/dose Orally Once a day prn December 16, 2013 take 8.5 g mixed with 8 oz. water or juice by Oral route 1 time per day PRN constipation Results No Known Results Summary Purpose [employer] Submission
--- OUTSIDE RECORDS SUMMARY | 2017-09-18 10:13 | XMS REPORT ---
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 99360114 Problem Major depressive disorder, recurrent episode, moderate F33.1 Active 573085457 Problem Generalized anxiety disorder F41.1 Active 42099067 Assessment Major depressive disorder, recurrent episode, moderate F33.1 Jul, Active 10070051 Problem Impotence of organic origin 607.84 Active 697069438 Problem Gout, unspecified 274.9 Active 85608924 Problem Adverse effect of other opioids, initial encounter T40.2X5A Active 105216882 Problem Head and neck cancer C76.0 Active 965750727 Problem Arthralgia, unspecified joint M25.50 Active 59160331 Problem Hypertension I10 Active 09036079 Problem COPD (chronic obstructive pulmonary disease) J44.9 Active 92349741 Problem Arthritis M19.90 Active 7052689 ALLERGIES Unknown Allergies SOCIAL HISTORY No smoking Hx information available PLAN OF CARE VITAL SIGNS MEDICATIONS Unknown Medications RESULTS No Results PROCEDURES Procedure Date Ordered Related Diagnosis Body Site [facility] VISIT MENTAL HEALTH ESTAB PT Jul 25, 2016 Psychotherapy, patient &/family, 45 minutes, established patient Jul 25, 2016 IMMUNIZATIONS No Known Immunizations
--- OUTSIDE RECORDS SUMMARY | 2017-09-18 10:13 | XMS REPORT ---
Author Author FRANCA SÁNCHEZ Organization [employer] Address Unknown Phone Unavailable Care Team Providers Care Pit Furnace Operator Name Role Phone FRANCA SÁNCHEZ CP Unavailable Allergies No Known Allergies Problems Problem Type Condition Code Onset Dates Condition Status Problem Pain in joint, multiple sites 719.49 Active Problem Gout, unspecified 274.9 Active Problem Major depressive disorder, recurrent episode, moderate 296.32 Active Assessment Cervical lymphadenopathy R59.0 Active Problem [...]
--- OUTSIDE RECORDS SUMMARY | 2017-09-18 10:13 | XMS REPORT ---
Author Author SUNG LOUIS Organization [employer] Address Unknown Phone Unavailable Care Team Providers Care Sod Stripper Name Role Phone SUNG LOUIS Unavailable Allergies [...] patient &/family, 45 minutes, established patient CPT-4 98599 Aug 10, 2015 Results No Known Results Summary Purpose [employer] Submission
--- OUTSIDE RECORDS SUMMARY | 2017-09-18 10:13 | XMS REPORT ---
Author Author SUNG LOUIS Organization [employer] Address Unknown Phone Unavailable Care Team Providers Care Investment Professional Name Role Phone SUNG LOUIS Unavailable Allergies [...] Active Problem Gout, unspecified 274.9 Active Assessment Major depressive disorder, recurrent episode, moderate 296.32 Active Problem Unspecified urticaria 708.9 Active Assessment Unspecified personality disorder 301.9 Active Problem Unspecified viral hepatitis C without hepatic coma 070.70 Active Assessment Generalized anxiety disorder 300.02 Active Problem Essential hypertension, benign 401.1 Active Medications No Known Medications Procedures Procedure Coding System Code Date Psychotherapy, patient &/family, 45 minutes, established patient CPT-4 33926 Apr 16, 2015 Results No Known Results Summary Purpose [employer] Submission
--- OUTSIDE RECORDS SUMMARY | 2017-09-18 10:13 | XMS REPORT ---
Author Author FRANCA SÁNCHEZ [facility] eClinicalWorks Address Unknown Phone Unavailable Care Team Providers Care Heating Unit Installer Name Role Phone FRANCA SÁNCHEZ CP Unavailable [...]
--- OUTSIDE RECORDS SUMMARY | 2017-09-18 10:13 | XMS REPORT ---
Author Author PADILLA SARAH Organization [employer] Address Unknown Phone Unavailable Care Team Providers Care Lap Grinder Name Role Phone PADILLA SARAH CP Unavailable Allergies No Known Allergies Problems [...]
--- OUTSIDE RECORDS SUMMARY | 2017-09-18 10:14 | XMS REPORT ---
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
--- OUTSIDE RECORDS SUMMARY | 2017-09-18 10:14 | XMS REPORT ---
Author Author SUNG LOUIS [facility] eClinicalWorks Address Unknown Phone Unavailable Care Team Providers Care Data Entry Assistant Name Role Phone SUNG LOUIS Unavailable Allergies [...] patient &/family, 45 minutes, established patient CPT-4 77350 Apr 11, 2016 Results No Known Results Summary Purpose eClinicalWorks Submission
--- OUTSIDE RECORDS SUMMARY | 2017-09-18 10:14 | XMS REPORT ---
Author FRANCA Velasquez [facility] eClinicalWorks Address Unknown Phone Unavailable Care Team Providers Care Creeler Name Role Phone FRANCA SÁNCHEZ CP Unavailable [...] Problem Arthralgia, unspecified joint M25.50 Active Assessment Adverse effect of other opioids, initial encounter T40.2X5A Active Assessment Arthritis M19.90 Active Assessment Hypertension I10 Active Assessment Other constipation K59.09 Active Problem Impotence of organic origin 607.84 Active Medications Medication Code System Code Instructions Start Date End Date Status Dosage Vitamin D2 [facility] 86[address]60 50,000 unit Orally January 29, 2013 take 1 capsule (50,000 unit) by oral route once weekly for 12 weeks HydrOXYzine HCl [facility] [address]-61 10 MG Orally 3 times a day Jun 23, 2015 as directed Amlodipine Besylate [facility] 32613149970 5 MG Orally Once a day 1 tablet Hydrochlorothiazide [facility] [address]-31 50 mg January 08, 2014 1 Tablet by Oral route 1 time per day PRN edema methadone NDC 0 10 mg oral, Chronic pain every 8 hours November 06, 2014 2 tablet Pepcid [facility] [address]-48 20 MG Orally Once a day Jul 03, 2014 1 tablet at bedtime Alprazolam [facility] [address]-33 2 MG Orally 3 times a day as needed for anxiety 1 tablet Zoloft [facility] [address]-67 100 MG Orally Once a day Sep 18, 2014 2 tablets Aciphex [facility] [address]-48 20 mg October 23, 2013 1 tablet by Oral route 1 time per day Sertraline HCl [facility] [address]-11 100 MG Orally Once a day October 26, 2015 2 tablet Ventolin HFA [facility] [address]-48 90 mcg/actuation December 19, 2012 2 Inhaler by Inhalation route every 4-6 hours PRN Xanax [facility] [address]-61 2 MG Orally Three times a day October 21, 2014 1 tablet Levothyroxine Sodium [facility] 84245238211 88 MCG TAKE ONE TABLET BY MOUTH DAILY MiraLax [facility] [address]-57 17 gram/dose Orally Once a day prn December 16, 2013 Aug 22, 2016 take 8.5 g mixed with 8 oz. water or juice by Oral route 1 time per day PRN constipation Klor-Con M20 [facility] [address]-84 20 mEq February 02, 2014 2 Tablet by Oral route 1 time per day Procedures Procedure Coding System Code Date Office Visit, Est Pt., Level 3 CPT-4 88820 February 24, 2016 Vital Signs Date/Time: February 24, 2016 Cardiac Monitoring Heart Rate 96 bpm Weight 201.9 lbs Height 69 in Blood Pressure Diastolic 96 mmHg Blood Pressure Systolic 134 mmHg Results No Known Results Summary Purpose eClinicalWorks Submission
--- OUTSIDE RECORDS SUMMARY | 2017-09-18 10:14 | XMS REPORT ---
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 88642947 Problem Arthritis M19.90 Active 7297876 Problem History of elevated PSA Z87.898 Active 269546041 Problem COPD (chronic obstructive pulmonary disease) J44.9 Active 68976611 Problem Arthralgia, unspecified joint M25.50 Active 07124418 Problem Adverse effect of other opioids, initial encounter T40.2X5A Active 323427142 Problem Head and neck cancer C76.0 Active 921015902 ALLERGIES No Information SOCIAL HISTORY Never Assessed PLAN OF CARE VITAL SIGNS MEDICATIONS Medication Instructions Dosage Frequency Start Date End Date Duration Status Alprazolam 2 MG Orally Twice a day 1 tablet 12h 30 days Active RESULTS No Results PROCEDURES No [...]
--- OUTSIDE RECORDS SUMMARY | 2017-09-18 10:14 | XMS REPORT ---
Author Author PABLO CALLAHAN [facility] eClinicalWorks Address Unknown Phone Unavailable Care Team Providers Care Supervisor Tank Cleaning Name Role Phone PABLO CALLAHAN Unavailable Allergies, [...] 8 hours November 06, 2014 2 tablet Vitamin D2 [facility] [address]241 50,000 unit Orally January 29, 2013 take 1 capsule (50,000 unit) by oral route once weekly for 12 weeks Flonase [facility] [address]-53 50 mcg/actuation Mar 17, 2014 1 sprays by Nasal route 2 times per day in each nostril Xanax [facility] [address]-34 2 MG Orally Three times a day October 21, 2014 1 tablet Aciphex [facility] [address]-42 20 mg October 23, 2013 1 tablet by Oral route 1 time per day Hydrochlorothiazide [facility] [address]-16 50 mg January 08, 2014 1 Tablet by Oral route 1 time per day PRN edema Ventolin HFA [facility] [address]-13 90 mcg/actuation December 19, 2012 2 Inhaler by Inhalation route every 4-6 hours PRN Amlodipine Besylate [facility] [address]-69 5 MG Orally Once a day December 29, 2014 1 tablet Pepcid [facility] [address]-42 20 MG Orally Once a day Jul 03, 2014 1 tablet at bedtime Zoloft [facility] [address]-71 100 MG Orally Once a day Sep 18, 2014 1.5 tablet MiraLax [facility] [address]-53 17 gram/dose Orally Once a day prn December 16, 2013 take 8.5 g mixed with 8 oz. water or juice by Oral route 1 time per day PRN constipation Levothyroxine Sodium [facility] 80947790393 88 MCG TAKE ONE TABLET BY MOUTH DAILY Klor-Con M20 [facility] [address]-73 20 mEq February 02, 2014 2 Tablet by Oral route 1 time per day Procedures Procedure Coding System Code Date Office Visit, Est Pt., Level 3 CPT-4 62955 Jun 22, 2015 Vital Signs Date/Time: Jun 22, 2015 Cardiac Monitoring Heart Rate 80 bpm Weight 133.9 lbs Height 69 in BMI 19.77 Index Blood Pressure Diastolic 58 mmHg Blood Pressure Systolic 102 mmHg Results No Known Results Summary Purpose eClinicalWorks Submission
--- OUTSIDE RECORDS SUMMARY | 2017-09-18 10:14 | XMS REPORT ---
Author Author FRANCA SÁNCHEZ Organization [employer] Address Unknown Phone Unavailable Care Team Providers Care Yard Hand Name Role Phone FRANCA SÁNCHEZ CP Unavailable [...]
--- OUTSIDE RECORDS SUMMARY | 2017-09-18 10:14 | XMS REPORT ---
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 13871522 Problem Arthritis M19.90 Active 7864219 Problem History of elevated PSA Z87.898 Active 240320843 Problem COPD (chronic obstructive pulmonary disease) J44.9 Active 43470901 Problem Arthralgia, unspecified joint M25.50 Active 04685929 Problem Adverse effect of other opioids, initial encounter T40.2X5A Active 433305044 Problem Head and neck cancer C76.0 Active 274269594 ALLERGIES Unknown Allergies SOCIAL HISTORY No smoking Hx information available PLAN OF CARE VITAL SIGNS MEDICATIONS Unknown Medications RESULTS No Results PROCEDURES No Known procedures IMMUNIZATIONS No Known Immunizations
[2017-09-18] MEDS ORDERED: HURRICAINE EXT TUBE (BENZOCAINE) XX PRN (10:15)
--- OUTSIDE RECORDS SUMMARY | 2017-09-18 10:15 | XMS REPORT ---
Author Author FRANCA SÁNCHEZ Organization [employer] Address Unknown Phone Unavailable Care Team Providers Care Bone Plant Supervisor Name Role Phone FRANCA SÁNCHEZ [...]
--- OUTSIDE RECORDS SUMMARY | 2017-09-18 10:15 | XMS REPORT ---
Author Author JESSICA MUJICA [facility] eClinicalWorks Address Unknown Phone Unavailable Care Team Providers Care It Security Consultant Name Role Phone JESSICA MUJICA CP Unavailable Allergies, Adverse Reactions, Alerts Substance Reaction Event Type Penicillin V Potassium Info Not Available Drug Allergy Mobic Info Not Available Drug Allergy Lipitor Info Not Available Drug Allergy Problems Problem Type Condition Code Onset Dates Condition Status Problem Pain in joint, multiple sites 719.49 Active Problem Gout, unspecified 274.9 Active Problem Major depressive disorder, recurrent episode, moderate 296.32 Active Assessment Acute bronchitis J20.9 Active Problem Impotence of organic origin 607.84 [...] Start Date End Date Status Dosage MiraLax [facility] [place] [address]94 17 gram/dose Orally Once a day prn December 16, 2013 take 8.5 g mixed with 8 oz. water or juice by Oral route 1 time per day PRN constipation Zoloft [facility] [place] [address]-95 100 MG Orally Once a day Sep 18, 2014 1.5 tablet Flonase [facility] [place] [address]-96 50 mcg/actuation Mar 17, 2014 1 sprays by Nasal route 2 times per day in each nostril Pepcid [facility] [place] [address]-27 20 MG Orally Once a day Jul 03, 2014 1 tablet at bedtime Diclofenac Sodium [facility] [place] [address]-03 75 MG Orally 2 times a day, pc Jul 06, 2015 1 tablet PredniSONE [facility] [place] [address]-56 10 MG Orally Twice a day Jul 17, 2015Jul 1 tablet with food or milk HydrOXYzine HCl [facility] [place] [address]-66 10 MG Orally 3 times a day Jun 23, 2015 as directed Hydrochlorothiazide [facility] [place] [address]-95 50 mg January 08, 2014 1 Tablet by Oral route 1 time per day PRN edema Azithromycin [facility] [place] [address]-37 250 MG Orally Once a day Jul 17, 2015 Jul 22, 2015 2 tablets on the first day, then 1 tablet daily for 4 days Ventolin HFA [facility] [place] [address]-45 90 mcg/actuation December 19, 2012 2 Inhaler by Inhalation route every 4-6 hours PRN Vitamin D2 [facility] [place] [address] 50,000 unit Orally January 29, 2013 take 1 capsule (50,000 unit) by oral route once weekly for 12 weeks methadone NDC 0 10 mg oral, Chronic pain every 8 hours November 06, 2014 2 tablet Amlodipine Besylate [facility] [place] [address]-98 5 MG Orally Once a day December 29, 2014 1 tablet Aciphex [facility] [place] [address]-22 20 mg October 23, 2013 1 tablet by Oral route 1 time per day Tessalon Perles [facility] [place] [address]-22 100 MG Orally Three times a day Jul 17, 2015 Jul 22, 2015 1 capsule as needed Levothyroxine Sodium [facility] [place] 09461149329 88 MCG TAKE ONE TABLET BY MOUTH DAILY Xanax [facility] [place] [address]-59 2 MG Orally Three times a day October 21, 2014 1 tablet Klor-Con M20 [facility] [place] [address]-16 20 mEq February 02, 2014 2 Tablet by Oral route 1 time per day Procedures Procedure Coding System Code Date Office Visit, Est Pt., Level 3 CPT-4 47906 Jul 17, 2015 MEASURE BLOOD OXYGEN LEVEL CPT-4 34529 Jul 17, 2015 Vital Signs Date/Time: Jul 17, 2015 Temperature 98.1 F Weight 253 lbs Height 69 in Oximetry 96 % Blood Pressure Diastolic 80 mmHg Blood Pressure Systolic 126 mmHg Cardiac Monitoring Heart Rate 69 bpm BMI 37.36 Index Results No Known Results Summary Purpose eClinicalWorks Submission
[2017-09-18] MEDS ORDERED: proPOfol 200 MG/20 ML (DIPRIVAN) VIAL IV ONE (10:39)
[2017-09-18] MEDS ORDERED: MIDAZOLAM 2 MG/2 ML (VERSED) VIAL ONE (10:39)
[2017-09-18] MEDS ORDERED: HURRICAINE EXT TUBE (BENZOCAINE) ONE (10:46)
--- NOTE | 2017-09-18 10:48 | Progress Note-Pre Operative ---
Pre-Operative Progress Note H&P Reviewed The H&P was reviewed, patient examined and no changes noted. Date Seen by Provider: Sep 18, 2017 Time Seen by Provider: 10:47 Date H&P Reviewed: Sep 18, 2017 Time H&P Reviewed: 10:47 Pre-Operative Diagnosis: dysphagia AMY CUETO DO Sep 18, 2017 10:48
[2017-09-18] MEDS ORDERED: LISI-552 PO (10:54)
--- NOTE | 2017-09-18 11:04 | Progress Note-Post Operative ---
Post-Operative Progess Note Surgeon (s)/Metal Roofer (s) Surgeon AMY CUETO DO Metal Roofer: na Pre-Operative Diagnosis dysphagia Post-Operative Diagnosis gastritis, healing ulcer Procedure & Operative Findings Date of Procedure 09/18/17 Procedure Performed/Findings egd c biopsies Anesthesia Type per market research executive Estimated Blood Loss Estimated blood loss (mL): none Specimens/Packing Specimens Removed antrum, body, body possible ulcer AMY CUETO DO Sep 18, 2017 11:04
[2017-09-18] MEDS ORDERED: SUCR1TAB36 PO (11:06)
[2017-09-18] MEDS ORDERED: PANT40TA2 PO (11:06)
--- NOTE | 2017-09-18 11:07 | Discharge Inst-Simple/Standard ---
Discharge Inst-Standard Discharge Medications New, Converted or Re-Newed RX: Transmitted to Pharmacy Patient Instructions/Follow Up Plan of Care/Instructions/FU: 2 weeks Clement Activity as Tolerated: Yes Discharge Diet: Regular Diet AMY CUETO DO Sep 18, 2017 11:07
[2017-09-18 11:25] VITALS: BP 129/93
[2017-09-18 11:55] VITALS: BP 129/93
[2017-09-18 11:58] VITALS: BP 129/93
--- NOTE | 2017-09-18 16:14 | OPERATIVE REPORT ---
DATE OF SERVICE: 09/18/2017 PREOPERATIVE DIAGNOSIS: Dysphagia. POSTOPERATIVE DIAGNOSIS: Gastritis and a healing ulcer of the stomach. PROCEDURE: EGD with biopsies. SURGEON: Amy Vaughan DO ANESTHESIA: Per CDL PROGRAM COORDINATOR. ESTIMATED BLOOD LOSS: None. COMPLICATIONS: None. INDICATIONS: The patient is a 57-year-old male with history of oral cancer. He has been having some difficulty with dysphagia, nausea and vomiting. He understands risks and benefits of procedure and wished to proceed with procedure. Consent was signed and on the chart. DESCRIPTION OF PROCEDURE: The patient was taken to the endoscopy suite, placed in left lateral recumbent position. Timeout was performed. Scope was inserted in mouth, down the esophagus, stomach and into the duodenum without difficulty. There were no polyps, masses or ulcerations within the duodenum. The scope was slowly retracted back into the stomach where further insufflated. Erythematous changes present and he has large portion of the stomach. Biopsy of the antrum was obtained. Biopsy of the body was obtained. There was an area, which appears to be a healing ulcer. Biopsies were obtained of this area and body of the stomach. Scope was retroflexed noting no other pathology. Scope was returned to its normal position, slowly withdrawn until the distal esophagus. There were no polyps, masses or ulcerations or erythematous changes. Scope was slowly retracted back until completely removed, noting no other pathology. The patient tolerated procedure well without any complications and taken to the recovery room in stable condition. RECOMMENDATIONS: The patient will stop the Aciphex and we will start him on Protonix 40 mg daily. We will also start him on Carafate 1 gram 4 times a day. We will have him follow up in the office about 2 weeks to discuss pathology and see how he is doing at that time. Job ID: [id number] DocumentID: [id number] Dictated Date: 09/18/2017 11:19:06 Outside Plant Cable Engineer Date: 09/18/2017 15:42:37 Dictated By: AMY VAUGHAN DO
== END 2017-09-18 11:58 | disposition home or self-care (01) ==
LOC: ENDO 09:52
PROVIDERS: ATTEND Surgery
DX: K29.70 Gastritis, unspecified, without bleeding (principal); K25.9 Gastric ulcer, unspecified as acute or chronic, without hemorrhage or perforation; K21.9 Gastro-esophageal reflux disease without esophagitis; J45.909 Unspecified asthma, uncomplicated; J44.9 Chronic obstructive pulmonary disease, unspecified; I10 Essential (primary) hypertension; E03.9 Hypothyroidism, unspecified; M79.7 Fibromyalgia; M19.91 Primary osteoarthritis, unspecified site; E55.9 Vitamin D deficiency, unspecified; Z85.810 Personal history of malignant neoplasm of tongue; Z92.21 Personal history of antineoplastic chemotherapy; Z92.3 Personal history of irradiation; Z79.899 Other long term (current) drug therapy

== ENCOUNTER → 2017-09-27 | Outpatient (CLI) | payer MEDICARE ==
[~2017-09-27] MED LIST changes: +CATHETER FLUSH 10 ML SYR IV PRN; +IOHEXOL 350 MG/ML 100 ML (OMNIPAQUE 350) VIAL IV ONE; +LISI-552 PO; +NS 250 ML (IVPB) BAG IV ONE; +PANT40TA2 PO; +RECEIVED CONTRAST (Hold Metformin) IV SCH; +SUCR1TAB36 PO
--- NOTE | 2017-09-27 17:17 | Diagnostic Imaging Report ---
INDICATION: Laryngeal cancer. Followup. TECHNIQUE: CT of the neck and chest were obtained after the administration of IV contrast. Sagittal and coronal reformations were made. COMPARISON: Prior study from 06/27/2017. FINDINGS: CT neck: The salivary glands are symmetrical and normal in appearance. There is no encroachment upon the airway. No intrinsic abnormality of the airway is seen. No suspicious neck mass or adenopathy is seen. These findings are similar to the prior study from 06/27/2017. CT chest: There is linear atelectasis or scarring in the right upper lobe which has shown improvement since the 06/27/2017 study with no alveolar infiltrates or tree-in-bud type of infiltrate seen. The remainder of the lungs are clear. There is no effusion or pneumothorax. There is no suspicious mass or adenopathy. There is a small hiatal hernia. No bony destructive lesions are seen. IMPRESSION: 1. CT of the neck shows no evidence of recurrent or metastatic disease with no change from the prior study. 2. CT of the chest shows improved aeration of the right upper lobe. There still remains some linear atelectasis or scarring. Dictated by: Dictated on workstation # [id number]
== END ==
LOC: RAD 15:16
PROVIDERS: ATTEND Nurse Practitioner Adult Health
DX: R93.8 Abnormal findings on diagnostic imaging of other specified body structures (principal); Z85.21 Personal history of malignant neoplasm of larynx
CPT/HCPCS: 70491; 71260

== ENCOUNTER 2017-12-13 13:16 | Outpatient (RCR) | payer MEDICARE, OTHER ==
[2017-09-20 15:19] LABS: BASOPHILS % (AUTO) 0 % (0-10); EOSINOPHILS # (AUTO) 0.3 10^3/uL (0.0-0.3); EOSINOPHILS % (AUTO) 7 % (0-10); HEMATOCRIT 40 % (40-54); HEMOGLOBIN 13.3 G/DL (13.3-17.7); LYMPHOCYTES # (AUTO) 1.5 X 10^3 (1.0-4.0); LYMPHOCYTES % (AUTO) 34 % (12-44); MEAN CORPUSCULAR HEMOGLOBIN 30 PG (25-34); MEAN CORPUSCULAR HGB CONC 33 G/DL (32-36); MEAN CORPUSCULAR VOLUME 90 FL (80-99); MEAN PLATELET VOLUME 9.8 FL (7.4-10.4); MONOCYTES # (AUTO) 0.5 X 10^3 (0.0-1.0); MONOCYTES % (AUTO) 11 % (0-12); NEUTROPHILS # (AUTO) 2.1 X 10^3 (1.8-7.8); NEUTROPHILS % (AUTO) 48 % (42-75); PLATELET COUNT 278 10^3/uL (130-400); RED BLOOD COUNT 4.43 10^6/uL (4.35-5.85); WHITE BLOOD COUNT 4.3 10^3/uL (4.3-11.0)
[2017-09-20 15:40] LABS: ALANINE AMINOTRANSFERASE 13 U/L (0-55); ALKALINE PHOSPHATASE 77 U/L (40-136); BILIRUBIN,TOTAL 0.3 MG/DL (0.1-1.0); BUN/CREATININE RATIO 15; CALCIUM 9.4 MG/DL (8.5-10.1); CARBON DIOXIDE 28 MMOL/L (21-32); CHLORIDE 101 MMOL/L (98-107); CREATININE SERUM 0.95 MG/DL (0.60-1.30); GFR ESTIMATED > 60; GLUCOSE 109 MG/DL (70-105); POTASSIUM 3.8 MMOL/L (3.6-5.0); SODIUM 136 MMOL/L (135-145)
[~2017-12-13 13:16] MED LIST changes: -CATHETER FLUSH 10 ML SYR IV PRN; -IOHEXOL 350 MG/ML 100 ML (OMNIPAQUE 350) VIAL IV ONE; -NS 250 ML (IVPB) BAG IV ONE; -RECEIVED CONTRAST (Hold Metformin) IV SCH; +SERT100T PO; -SERT20OR PO
[2017-12-13 13:50] LABS: BASOPHILS % (AUTO) 1 % (0-10); EOSINOPHILS # (AUTO) 0.3 10^3/uL (0.0-0.3); EOSINOPHILS % (AUTO) 7 % (0-10); HEMATOCRIT 40 % (40-54); HEMOGLOBIN 13.3 G/DL (13.3-17.7); LYMPHOCYTES # (AUTO) 1.8 X 10^3 (1.0-4.0); LYMPHOCYTES % (AUTO) 41 % (12-44); MEAN CORPUSCULAR HEMOGLOBIN 30 PG (25-34); MEAN CORPUSCULAR HGB CONC 34 G/DL (32-36); MEAN CORPUSCULAR VOLUME 89 FL (80-99); MEAN PLATELET VOLUME 9.7 FL (7.4-10.4); MONOCYTES # (AUTO) 0.5 X 10^3 (0.0-1.0); MONOCYTES % (AUTO) 11 % (0-12); NEUTROPHILS # (AUTO) 1.7 X 10^3 (1.8-7.8); NEUTROPHILS % (AUTO) 40 % (42-75); PLATELET COUNT 330 10^3/uL (130-400); RED BLOOD COUNT 4.46 10^6/uL (4.35-5.85); RED CELL DISTRIBUTION WIDTH 13.9 % (10.0-14.5); WHITE BLOOD COUNT 4.4 10^3/uL (4.3-11.0)
[2017-12-13 14:10] LABS: ALANINE AMINOTRANSFERASE 26 U/L (0-55); ALBUMIN 4.1 GM/DL (3.2-4.5); ALKALINE PHOSPHATASE 75 U/L (40-136); BUN/CREATININE RATIO 10; CALCIUM 9.2 MG/DL (8.5-10.1); CARBON DIOXIDE 28 MMOL/L (21-32); CHLORIDE 102 MMOL/L (98-107); CREATININE SERUM 0.88 MG/DL (0.60-1.30); GFR ESTIMATED > 60; GLUCOSE 98 MG/DL (70-105); POTASSIUM 3.4 MMOL/L (3.6-5.0); SODIUM 139 MMOL/L (135-145)
[2017-12-13 15:49] LABS: BILIRUBIN,TOTAL 0.4 MG/DL (0.1-1.0)
== END 2017-12-19 | disposition home or self-care (01) ==
LOC: ONC 13:16
PROVIDERS: ATTEND Internal Medicine Hematology & Oncology
DX: C01 Malignant neoplasm of base of tongue (principal); C77.0 Secondary and unspecified malignant neoplasm of lymph nodes of head, face and neck; E55.9 Vitamin D deficiency, unspecified; E89.0 Postprocedural hypothyroidism; I10 Essential (primary) hypertension; K21.9 Gastro-esophageal reflux disease without esophagitis; J44.9 Chronic obstructive pulmonary disease, unspecified; J45.909 Unspecified asthma, uncomplicated; M79.7 Fibromyalgia; Z79.899 Other long term (current) drug therapy; Z92.21 Personal history of antineoplastic chemotherapy; Z92.3 Personal history of irradiation
CPT/HCPCS: 36591; 80053; 82306; 84443; 85025; 96523

== ENCOUNTER 2018-04-18 13:32 | Outpatient (RCR) | payer MEDICARE, OTHER ==
[~2018-04-18 13:32] MED LIST changes: -AMLO5TAB2 PO; +AMLO5TAB7 PO
== END 2018-04-24 | disposition home or self-care (01) ==
LOC: ONC 13:32
PROVIDERS: ATTEND Internal Medicine Hematology & Oncology
DX: C01 Malignant neoplasm of base of tongue (principal); C77.0 Secondary and unspecified malignant neoplasm of lymph nodes of head, face and neck; E55.9 Vitamin D deficiency, unspecified; E89.0 Postprocedural hypothyroidism; I10 Essential (primary) hypertension; K21.9 Gastro-esophageal reflux disease without esophagitis; J44.9 Chronic obstructive pulmonary disease, unspecified; J45.909 Unspecified asthma, uncomplicated; M79.7 Fibromyalgia; Z79.899 Other long term (current) drug therapy; Z92.21 Personal history of antineoplastic chemotherapy; Z92.3 Personal history of irradiation
CPT/HCPCS: 36591; 84443; 96523

== ENCOUNTER 2018-08-22 10:55 | Outpatient (RCR) | payer MEDICARE ==
[2018-07-11 13:08] LABS: BASOPHILS % (AUTO) 1 % (0-10); EOSINOPHILS # (AUTO) 0.3 10^3/uL (0.0-0.3); EOSINOPHILS % (AUTO) 7 % (0-10); HEMATOCRIT 41 % (40-54); HEMOGLOBIN 13.1 G/DL (13.3-17.7); LYMPHOCYTES # (AUTO) 1.6 X 10^3 (1.0-4.0); LYMPHOCYTES % (AUTO) 31 % (12-44); MEAN CORPUSCULAR HEMOGLOBIN 29 PG (25-34); MEAN CORPUSCULAR HGB CONC 32 G/DL (32-36); MEAN CORPUSCULAR VOLUME 89 FL (80-99); MEAN PLATELET VOLUME 8.8 FL (7.4-10.4); MONOCYTES # (AUTO) 0.6 X 10^3 (0.0-1.0); MONOCYTES % (AUTO) 11 % (0-12); NEUTROPHILS # (AUTO) 2.6 X 10^3 (1.8-7.8); NEUTROPHILS % (AUTO) 51 % (42-75); PLATELET COUNT 349 10^3/uL (130-400); RED BLOOD COUNT 4.54 10^6/uL (4.35-5.85); RED CELL DISTRIBUTION WIDTH 13.7 % (10.0-14.5); WHITE BLOOD COUNT 5.1 10^3/uL (4.3-11.0)
[2018-07-11 13:27] LABS: ALANINE AMINOTRANSFERASE 12 U/L (0-55); ALKALINE PHOSPHATASE 85 U/L (40-136); BILIRUBIN,TOTAL 0.4 MG/DL (0.1-1.0); BUN/CREATININE RATIO 13; CALCIUM 9.6 MG/DL (8.5-10.1); CARBON DIOXIDE 27 MMOL/L (21-32); CHLORIDE 103 MMOL/L (98-107); CREATININE SERUM 0.91 MG/DL (0.60-1.30); GFR ESTIMATED > 60; GLUCOSE 101 MG/DL (70-105); POTASSIUM 3.7 MMOL/L (3.6-5.0); SODIUM 139 MMOL/L (135-145); TOTAL PROTEIN 7.2 GM/DL (6.4-8.2)
== END 2018-08-28 | disposition home or self-care (01) ==
LOC: ONC 10:55
PROVIDERS: ATTEND Internal Medicine Hematology & Oncology
DX: Z45.2 Encounter for adjustment and management of vascular access device (principal); C01 Malignant neoplasm of base of tongue; C77.0 Secondary and unspecified malignant neoplasm of lymph nodes of head, face and neck
CPT/HCPCS: 36591; 80053; 84443; 85025; 96523

== ENCOUNTER → 2018-09-09 | Outpatient (CLI) | payer MEDICARE, OTHER ==
[~2018-09-09] MED LIST changes: -AMLO5TAB7 PO; +AMLO5TAB9 PO; +BARIUM SUSPENSION 105% (LIQUID POLIBAR PLUS) 240 ML/DOSE PO ONE; +BARIUM SUSPENSION 60% (LIQUID EZ PAQUE) 240 ML DOSE PO ONE
--- NOTE | 2018-09-09 13:31 | Diagnostic Imaging Report ---
EXAMINATION: Esophagram. INDICATION: Multinodular goiter, left thyroid nodule. COMPARISON: There are no prior studies available for comparison. FINDINGS: The preliminary film of the chest shows no evidence for an acute abnormality. A double-contrast exam was performed. The patient swallowed the contrast without difficulty. There was no delay or obstruction in the passage of the barium through the esophagus. A few tertiary contractions were noted. These generally indicate ineffective peristalsis. There is no evidence for a hiatal hernia or for gastroesophageal reflux. The stomach shows fairly good distensibility and motility. There is no mass or ulceration evident. The duodenal bulb and proximal small bowel were generally unremarkable. IMPRESSION: 1. Presbyesophagus. There is no evidence for obstruction of the esophagus, and there is no sign of a hiatal hernia or of gastroesophageal reflux. 2. A cursory examination of the stomach, duodenal bulb, and proximal small bowel shows no acute abnormality. Dictated by: Dictated on workstation # [id number]
== END ==
LOC: RAD 10:34
PROVIDERS: ATTEND Otolaryngology Otolaryngology/Facial Plastic Surgery
DX: K22.8 Other specified diseases of esophagus (principal); E04.2 Nontoxic multinodular goiter; R13.10 Dysphagia, unspecified
CPT/HCPCS: 74220

== ENCOUNTER 2018-10-08 13:10 | Day surgery (SDC) | payer MEDICARE ==
[~2018-10-08] VITALS: Ht 175.3 cm; Wt 101.2 kg
[~2018-10-08 13:10] MED LIST changes: -BARIUM SUSPENSION 105% (LIQUID POLIBAR PLUS) 240 ML/DOSE PO ONE; -BARIUM SUSPENSION 60% (LIQUID EZ PAQUE) 240 ML DOSE PO ONE
[2018-10-08] MEDS ORDERED: LACTATED RINGERS 1,000 ML IV STA (13:24)
[2018-10-08] MEDS ORDERED: LACTATED RINGERS 1,000 ML IV ONE (13:35)
[2018-10-08 14:02] VITALS: BP 147/95
--- NOTE | 2018-10-08 14:07 | Progress Note-Pre Operative ---
Pre-Operative Progress Note H&P Reviewed The H&P was reviewed, patient examined and no changes noted. Date Seen by Provider: Oct 08, 2018 Time Seen by Provider: 14:06 Date H&P Reviewed: Oct 08, 2018 Time H&P Reviewed: 14:06 Pre-Operative Diagnosis: blood in stools AMY CUETO DO Oct 08, 2018 14:06
[2018-10-08] MEDS ORDERED: MIDAZOLAM 2 MG/2 ML (VERSED) VIAL ONE (14:18)
[2018-10-08] MEDS ORDERED: PROPOFOL INJECTION 50 ML IV ONE (14:19)
[2018-10-08] MEDS ORDERED: GLYCOPYRROLATE 0.2 MG/ML (ROBINUL) 2 ML VIAL ONE (15:08)
[2018-10-08] MEDS ORDERED: proPOfol 200 MG/20 ML (DIPRIVAN) VIAL IV ONE (15:45)
--- NOTE | 2018-10-08 16:08 | Discharge Inst-Simple/Standard ---
Discharge Inst-Standard Patient Instructions/Follow Up Plan of Care/Instructions/FU: follow up with Dr. Vaughan on as needed basis. If begin to have return of your symptoms be seen at that time. Need repeat colonoscopy in 10 years unless family history of colon cancer or personal history of polyps which would be 5 years. Activity as Tolerated: Yes Discharge Diet: Regular Diet AMY VAUGHAN DO Oct 08, 2018 16:08
[2018-10-08 16:15] VITALS: BP 102/73
[2018-10-08 16:37] VITALS: BP 102/73
--- NOTE | 2018-10-09 01:22 | OPERATIVE REPORT ---
DATE OF SERVICE: 10/08/2018 PREOPERATIVE DIAGNOSIS: Blood in stools. POSTOPERATIVE DIAGNOSIS: Normal colon. PROCEDURE: Colonoscopy. SURGEON: Amy Vaughan DO ANESTHESIA: Per NATURAL GAS TRADER. ESTIMATED BLOOD LOSS: None. COMPLICATIONS: None. INDICATIONS: The patient is a 58-year-old male with blood in stools. The patient reports that he has had any most recently. He was explained risks and benefits of procedure and wished to proceed with procedure. Consent was signed on the chart. DESCRIPTION OF PROCEDURE: The patient was taken to the endoscopy suite, placed in left lateral recumbent position. Timeout was performed. Digital rectal exam was performed. There were no palpable polyps, masses or ulcerations. Scope was inserted into the rectum, advanced all the way to the cecum with minimal difficulty. Prep was adequate. Scope was slowly retracted back. There were no polyps, masses or ulcerations in the cecum. The terminal ileum and the ileocecal valve was intubated and no pathology noted within the terminal ileum. Scope was retracted back into the colon and continued to be slowly retracted back. There were no polyps, masses or ulcerations in the ascending, transverse, descending and sigmoid colon. Once in the rectum, scope was retroflexed noting no other pathology. Scope was returned to its normal position, slowly withdrawn until completely removed. The patient tolerated procedure well without any complications. He was taken to the recovery room in stable condition. RECOMMENDATIONS: The patient will need repeat colonoscopy in 10 years unless family history of colon cancer or personal history of polyps, which was then be 5 years. If he has any return of his symptoms or blood in the stools he should be reevaluated at that time and consider re-scoping. The patient agrees with the plan. Job ID: [id number] DocumentID: [id number] Dictated Date: 10/08/2018 16:15:14 Milking Worker Date: 10/09/2018 01:22:34 Dictated By: AMY VAUGHAN DO
== END 2018-10-08 16:40 | disposition home or self-care (01) ==
LOC: ENDO 13:10
PROVIDERS: ATTEND Surgery
DX: K92.1 Melena (principal); I10 Essential (primary) hypertension; J44.9 Chronic obstructive pulmonary disease, unspecified; K21.9 Gastro-esophageal reflux disease without esophagitis; E03.9 Hypothyroidism, unspecified; E66.9 Obesity, unspecified; Z68.32 Body mass index [BMI] 32.0-32.9, adult; Z79.899 Other long term (current) drug therapy

== ENCOUNTER 2018-12-23 12:32 | Outpatient (RCR) | payer MEDICARE, OTHER ==
[2018-12-23 13:54] LABS: BASOPHILS % (AUTO) 1 % (0-10); EOSINOPHILS # (AUTO) 0.4 10^3/uL (0.0-0.3); EOSINOPHILS % (AUTO) 8 % (0-10); HEMATOCRIT 38 % (40-54); HEMOGLOBIN 12.1 G/DL (13.3-17.7); LYMPHOCYTES # (AUTO) 1.5 X 10^3 (1.0-4.0); LYMPHOCYTES % (AUTO) 33 % (12-44); MEAN CORPUSCULAR HGB CONC 32 G/DL (32-36); MEAN CORPUSCULAR VOLUME 89 FL (80-99); MEAN PLATELET VOLUME 9.5 FL (7.4-10.4); MONOCYTES # (AUTO) 0.5 X 10^3 (0.0-1.0); MONOCYTES % (AUTO) 12 % (0-12); NEUTROPHILS # (AUTO) 2.2 X 10^3 (1.8-7.8); NEUTROPHILS % (AUTO) 47 % (42-75); PLATELET COUNT 283 10^3/uL (130-400); RED CELL DISTRIBUTION WIDTH 14.9 % (10.0-14.5); WHITE BLOOD COUNT 4.7 10^3/uL (4.3-11.0)
[2018-12-23 13:59] LABS: MEAN CORPUSCULAR HEMOGLOBIN 28 PG (25-34)
[2018-12-23 14:18] LABS: ALANINE AMINOTRANSFERASE 14 U/L (0-55); ALKALINE PHOSPHATASE 102 U/L (40-136); BILIRUBIN,TOTAL 0.2 MG/DL (0.1-1.0); BUN/CREATININE RATIO 22; CALCIUM 9.3 MG/DL (8.5-10.1); CARBON DIOXIDE 24 MMOL/L (21-32); CHLORIDE 105 MMOL/L (98-107); CREATININE SERUM 0.83 MG/DL (0.60-1.30); GFR ESTIMATED > 60; GLUCOSE 104 MG/DL (70-105); POTASSIUM 3.7 MMOL/L (3.6-5.0); SODIUM 140 MMOL/L (135-145); TOTAL PROTEIN 6.7 GM/DL (6.4-8.2)
== END 2019-01-01 | disposition home or self-care (01) ==
LOC: ONC 12:32
PROVIDERS: ATTEND Internal Medicine Hematology & Oncology
DX: C01 Malignant neoplasm of base of tongue (principal); C77.0 Secondary and unspecified malignant neoplasm of lymph nodes of head, face and neck; Z45.2 Encounter for adjustment and management of vascular access device
CPT/HCPCS: 36591; 80053; 84443; 85025; 96523

== ENCOUNTER 2019-03-17 15:20 | Outpatient (RCR) | payer MEDICARE, OTHER | END 2019-05-01 | disposition home or self-care (01) | LOC: ONC 15:20 | PROVIDERS: ATTEND Internal Medicine Hematology & Oncology | DX: C01 Malignant neoplasm of base of tongue (principal); C77.0 Secondary and unspecified malignant neoplasm of lymph nodes of head, face and neck; E55.9 Vitamin D deficiency, unspecified; E89.0 Postprocedural hypothyroidism; I10 Essential (primary) hypertension; K21.9 Gastro-esophageal reflux disease without esophagitis; J44.9 Chronic obstructive pulmonary disease, unspecified; J45.909 Unspecified asthma, uncomplicated; M79.7 Fibromyalgia; Z79.899 Other long term (current) drug therapy; Z92.21 Personal history of antineoplastic chemotherapy; Z92.3 Personal history of irradiation | CPT/HCPCS: 36591; 84443 ==

== ENCOUNTER 2019-07-21 13:07 | Outpatient (RCR) | payer MEDICARE, OTHER ==
[2019-06-09 13:07] LABS: BASOPHILS % (AUTO) 0 % (0-10); EOSINOPHILS # (AUTO) 0.4 10^3/uL (0.0-0.3); EOSINOPHILS % (AUTO) 7 % (0-10); HEMATOCRIT 39 % (40-54); HEMOGLOBIN 12.1 G/DL (13.3-17.7); LYMPHOCYTES # (AUTO) 1.3 X 10^3 (1.0-4.0); LYMPHOCYTES % (AUTO) 26 % (12-44); MEAN CORPUSCULAR HEMOGLOBIN 29 PG (25-34); MEAN CORPUSCULAR HGB CONC 31 G/DL (32-36); MEAN CORPUSCULAR VOLUME 91 FL (80-99); MEAN PLATELET VOLUME 8.7 FL (7.4-10.4); MONOCYTES # (AUTO) 0.6 X 10^3 (0.0-1.0); MONOCYTES % (AUTO) 13 % (0-12); NEUTROPHILS # (AUTO) 2.6 X 10^3 (1.8-7.8); NEUTROPHILS % (AUTO) 53 % (42-75); PLATELET COUNT 268 10^3/uL (130-400); RED CELL DISTRIBUTION WIDTH 15.4 % (10.0-14.5); WHITE BLOOD COUNT 4.9 10^3/uL (4.3-11.0)
[2019-06-09 13:30] LABS: ALANINE AMINOTRANSFERASE 14 U/L (0-55); ALBUMIN 3.8 GM/DL (3.2-4.5); ALKALINE PHOSPHATASE 75 U/L (40-136); BILIRUBIN,TOTAL 0.5 MG/DL (0.1-1.0); BUN/CREATININE RATIO 9; CALCIUM 8.9 MG/DL (8.5-10.1); CARBON DIOXIDE 30 MMOL/L (21-32); CHLORIDE 103 MMOL/L (98-107); CREATININE SERUM 0.88 MG/DL (0.60-1.30); GFR ESTIMATED > 60; GLUCOSE 98 MG/DL (70-105); POTASSIUM 3.8 MMOL/L (3.6-5.0); SODIUM 142 MMOL/L (135-145); TOTAL PROTEIN 6.6 GM/DL (6.4-8.2)
[~2019-07-21 13:07] MED LIST changes: +FLU QUADRIvalent (5+ YOA) 2019-2020 (Cancer Ctr) 0.5 ML IM ONE
== END 2019-07-31 | disposition home or self-care (01) ==
LOC: ONC 13:07
PROVIDERS: ATTEND Internal Medicine Hematology & Oncology
DX: C01 Malignant neoplasm of base of tongue (principal); C77.0 Secondary and unspecified malignant neoplasm of lymph nodes of head, face and neck; E55.9 Vitamin D deficiency, unspecified; E89.0 Postprocedural hypothyroidism; I10 Essential (primary) hypertension; K21.9 Gastro-esophageal reflux disease without esophagitis; J44.9 Chronic obstructive pulmonary disease, unspecified; J45.909 Unspecified asthma, uncomplicated; M79.7 Fibromyalgia; Z79.899 Other long term (current) drug therapy; Z92.21 Personal history of antineoplastic chemotherapy; Z92.3 Personal history of irradiation
CPT/HCPCS: 36591; 80053; 84443; 85025; 90471; 96523

== ENCOUNTER 2019-11-28 14:00 | Outpatient (RCR) | payer MEDICARE, OTHER ==
[~2019-11-28 14:00] MED LIST changes: -FLU QUADRIvalent (5+ YOA) 2019-2020 (Cancer Ctr) 0.5 ML IM ONE
== END 2019-11-30 | disposition home or self-care (01) ==
LOC: ONC 14:00
PROVIDERS: ATTEND Internal Medicine Hematology & Oncology
DX: C01 Malignant neoplasm of base of tongue (principal); C77.0 Secondary and unspecified malignant neoplasm of lymph nodes of head, face and neck; E55.9 Vitamin D deficiency, unspecified; E89.0 Postprocedural hypothyroidism; I10 Essential (primary) hypertension; K21.9 Gastro-esophageal reflux disease without esophagitis; J44.9 Chronic obstructive pulmonary disease, unspecified; J45.909 Unspecified asthma, uncomplicated; M79.7 Fibromyalgia; Z79.899 Other long term (current) drug therapy; Z92.21 Personal history of antineoplastic chemotherapy; Z92.3 Personal history of irradiation; Z45.2 Encounter for adjustment and management of vascular access device
CPT/HCPCS: 96523

== ENCOUNTER → 2019-12-17 | Outpatient (CLI) | payer MEDICARE, OTHER ==
[2019-12-17 14:12] LABS: BASOPHILS % (AUTO) 1 % (0-10); EOSINOPHILS # (AUTO) 0.5 10^3/uL (0.0-0.3); EOSINOPHILS % (AUTO) 8 % (0-10); HEMATOCRIT 39 % (40-54); HEMOGLOBIN 12.3 G/DL (13.3-17.7); LYMPHOCYTES # (AUTO) 1.7 X 10^3 (1.0-4.0); LYMPHOCYTES % (AUTO) 27 % (12-44); MEAN CORPUSCULAR HEMOGLOBIN 28 PG (25-34); MEAN CORPUSCULAR HGB CONC 32 G/DL (32-36); MEAN CORPUSCULAR VOLUME 89 FL (80-99); MEAN PLATELET VOLUME 9.2 FL (7.4-10.4); MONOCYTES # (AUTO) 0.7 X 10^3 (0.0-1.0); MONOCYTES % (AUTO) 12 % (0-12); NEUTROPHILS # (AUTO) 3.3 X 10^3 (1.8-7.8); NEUTROPHILS % (AUTO) 52 % (42-75); PLATELET COUNT 309 10^3/uL (130-400); RED CELL DISTRIBUTION WIDTH 15.1 % (10.0-14.5); WHITE BLOOD COUNT 6.2 10^3/uL (4.3-11.0)
[2019-12-17 14:33] LABS: ALANINE AMINOTRANSFERASE 17 U/L (0-55); ALBUMIN 3.9 GM/DL (3.2-4.5); ALKALINE PHOSPHATASE 79 U/L (40-136); BILIRUBIN,TOTAL 0.2 MG/DL (0.1-1.0); BUN/CREATININE RATIO 16; CALCIUM 8.8 MG/DL (8.5-10.1); CARBON DIOXIDE 28 MMOL/L (21-32); CHLORIDE 103 MMOL/L (98-107); CREATININE SERUM 0.89 MG/DL (0.60-1.30); GFR ESTIMATED > 60; GLUCOSE 79 MG/DL (70-105); POTASSIUM 4.2 MMOL/L (3.6-5.0); SODIUM 139 MMOL/L (135-145); TOTAL PROTEIN 6.8 GM/DL (6.4-8.2)
== END ==
LOC: EDSTATUS 13:32 → ONC 13:39
PROVIDERS: ATTEND Internal Medicine Hematology & Oncology
DX: C01 Malignant neoplasm of base of tongue (principal); C77.0 Secondary and unspecified malignant neoplasm of lymph nodes of head, face and neck; E55.9 Vitamin D deficiency, unspecified; E89.0 Postprocedural hypothyroidism; I10 Essential (primary) hypertension; K21.9 Gastro-esophageal reflux disease without esophagitis; J44.9 Chronic obstructive pulmonary disease, unspecified; J45.909 Unspecified asthma, uncomplicated; M79.7 Fibromyalgia; Z79.899 Other long term (current) drug therapy; Z92.21 Personal history of antineoplastic chemotherapy; Z92.3 Personal history of irradiation; Z45.2 Encounter for adjustment and management of vascular access device
CPT/HCPCS: 36591; 80053; 84443; 85025

== ENCOUNTER 2020-03-12 14:24 | Outpatient (RCR) | payer MEDICARE | END 2020-04-20 | disposition home or self-care (01) | LOC: ONC 14:24 | PROVIDERS: ATTEND Internal Medicine Hematology & Oncology | DX: C01 Malignant neoplasm of base of tongue (principal); C77.0 Secondary and unspecified malignant neoplasm of lymph nodes of head, face and neck; E03.9 Hypothyroidism, unspecified; Z45.2 Encounter for adjustment and management of vascular access device | CPT/HCPCS: 36591; 84443; 96523 ==

== ENCOUNTER → 2020-06-16 | Outpatient (CLI) | payer MEDICARE, OTHER ==
[~2020-06-16] MED LIST changes: +AMLO-250 PO; -AMLO5TAB9 PO; +RT-ALBUTEROL SULF 2.5 MG/3 ML PRE-MIX VIAL INH ONE
== END ==
LOC: RT 15:30
PROVIDERS: ATTEND Internal Medicine
DX: J98.4 Other disorders of lung (principal)
CPT/HCPCS: 94060; 94726; 94729

== ENCOUNTER 2020-07-07 14:41 | Outpatient (RCR) | payer MEDICARE, OTHER ==
[2020-07-07 14:41] LABS: BASOPHILS # (AUTO) 0.1 10^3/uL (0.0-0.1); BASOPHILS % (AUTO) 1 % (0-10); EOSINOPHILS # (AUTO) 0.2 10^3/uL (0.0-0.3); EOSINOPHILS % (AUTO) 5 % (0-10); HEMATOCRIT 39 % (40-54); HEMOGLOBIN 12.1 g/dL (13.3-17.7); LYMPHOCYTES # (AUTO) 2.1 10^3/uL (1.0-4.0); LYMPHOCYTES % (AUTO) 45 % (12-44); MEAN CORPUSCULAR HEMOGLOBIN 26 pg (25-34); MEAN CORPUSCULAR HGB CONC 31 g/dL (32-36); MEAN CORPUSCULAR VOLUME 84 fL (80-99); MEAN PLATELET VOLUME 9.9 fL (9.0-12.2); MONOCYTES # (AUTO) 0.6 10^3/uL (0.0-1.0); MONOCYTES % (AUTO) 13 % (0-12); NEUTROPHILS # (AUTO) 1.7 10^3/uL (1.8-7.8); NEUTROPHILS % (AUTO) 36 % (42-75); PLATELET COUNT 304 10^3/uL (130-400); WHITE BLOOD COUNT 4.6 10^3/uL (4.3-11.0)
[~2020-07-07 14:41] MED LIST changes: -RT-ALBUTEROL SULF 2.5 MG/3 ML PRE-MIX VIAL INH ONE
[2020-07-07 15:04] LABS: ALANINE AMINOTRANSFERASE 15 U/L (0-55); ALBUMIN 3.9 GM/DL (3.2-4.5); ALKALINE PHOSPHATASE 85 U/L (40-136); BILIRUBIN,TOTAL 0.5 MG/DL (0.1-1.0); BUN/CREATININE RATIO 12; CALCIUM 8.9 MG/DL (8.5-10.1); CARBON DIOXIDE 27 MMOL/L (21-32); CHLORIDE 103 MMOL/L (98-107); GFR ESTIMATED > 60; GLUCOSE 133 MG/DL (70-105); POTASSIUM 3.6 MMOL/L (3.6-5.0); SODIUM 138 MMOL/L (135-145); TOTAL PROTEIN 6.8 GM/DL (6.4-8.2)
[2020-07-29] MEDS ORDERED: FLUT1DIS26 IH (14:35)
[2020-07-29] MEDS ORDERED: ALB0.5V INH (14:35)
[2020-07-29] MEDS ORDERED: AMLO-251 PO (14:35)
== END 2020-07-20 | disposition home or self-care (01) ==
LOC: ONC 14:41
PROVIDERS: ATTEND Internal Medicine Hematology & Oncology
DX: Z45.2 Encounter for adjustment and management of vascular access device (principal); C01 Malignant neoplasm of base of tongue; C77.0 Secondary and unspecified malignant neoplasm of lymph nodes of head, face and neck; E03.9 Hypothyroidism, unspecified; J44.9 Chronic obstructive pulmonary disease, unspecified; I10 Essential (primary) hypertension; K11.7 Disturbances of salivary secretion; K46.9 Unspecified abdominal hernia without obstruction or gangrene; Z92.21 Personal history of antineoplastic chemotherapy
CPT/HCPCS: 36591; 80053; 84443; 85025; 96523

== ENCOUNTER 2020-08-03 05:41 | Outpatient (RCR) | payer MEDICARE ==
[~2020-08-03] VITALS: Ht 175 cm; Wt 105.9 kg
[~2020-08-03 05:41] MED LIST changes: +ALB0.5V INH; +AMLO-251 PO; +FLUT1DIS26 IH
== END 2020-08-04 11:04 | disposition home or self-care (01) ==
LOC: PREOP 05:41
PROVIDERS: ATTEND Surgery
DX: Z01.812 Encounter for preprocedural laboratory examination (principal); Z20.828 Contact with and (suspected) exposure to other viral communicable diseases; Z85.810 Personal history of malignant neoplasm of tongue
CPT/HCPCS: 87635

== ENCOUNTER 2020-08-05 06:13 | Day surgery (SDC) | payer MEDICARE ==
[~2020-08-05] VITALS: Ht 175 cm; Wt 105.9 kg
[2020-08-05] VITALS (7 sets, daily range): BP systolic 82–139; BP diastolic 49–91
[2020-08-05] MEDS ORDERED: ceFAZolin 2 GM IV Premixed 50 ML IV ONE (06:45)
[2020-08-05] MEDS ORDERED: LACTATED RINGERS 1,000 ML IV PRN (06:45)
[2020-08-05] MEDS ORDERED: MIDAZOLAM 2 MG/2 ML (VERSED) VIAL ONE (06:58)
[2020-08-05] MEDS ORDERED: PROPOFOL INJECTION 50 ML IV ONE (06:58)
[2020-08-05] MEDS ORDERED: LIDOCAINE/EPI 1%-1:100,000 (XYLOCAINE) 50 ML ONE (07:13)
--- NOTE | 2020-08-05 08:43 | Progress Note-Pre Operative ---
Pre-Operative Progress Note H&P Reviewed The H&P was reviewed, patient examined and no changes noted. Date Seen by Provider: Aug 05, 2020 Time Seen by Provider: 08:00 Date H&P Reviewed: Aug 05, 2020 Time H&P Reviewed: 08:00 Pre-Operative Diagnosis: hx squamous cell tongue AMY CUETO DO Aug 05, 2020 08:43
--- NOTE | 2020-08-05 08:44 | Progress Note-Post Operative ---
Post-Operative Progess Note Surgeon (s)/Coil Connector (s) Surgeon AMY CUETO DO Coil Connector: na Pre-Operative Diagnosis hx squamous cell tongue Post-Operative Diagnosis same Procedure & Operative Findings Date of Procedure 08/05/20 Procedure Performed/Findings PROCEDURE: Removal of port, COMPLICATIONS: None. INDICATIONS: The patient is a 59 year-old male who had a port previously placed. Patient is ok to have port removed. The patient was explained risk and benefits of the procedure and wished to proceed with procedure. Consent was signed on the chart. PROCEDURE: The patient was taken to the operating suite and was prepped and draped in sterile fashion. A surgical pause was performed. Local anesthetic was infiltrated to the area around the port. A number 15 blade scalpel was used to make an incision. Cautery was used to dissect down to the port which was then grasped and then dissected around. The catheter was removed in its entirety. The port was then able to be dissected out of the pocket and elevated. The wound was then irrigated with copious amounts of irrigation. Hemostasis had been achieved. Skin was then closed using 4-0 Vicryl in a running fashion. The area was then washed and dried and Skin Affix placed over the incision. The patient tolerated the procedure well without complication and was taken to recovery room in stable condition. Anesthesia Type mac c local Estimated Blood Loss Estimated blood loss (mL): min Specimens/Packing Specimens Removed none AMY CUETO DO Aug 05, 2020 08:44
--- NOTE | 2020-08-05 08:47 | Discharge Inst-Simple/Standard ---
Discharge Inst-Standard Patient Instructions/Follow Up Plan of Care/Instructions/FU: 2 weeks Clement Activity as Tolerated: No Discharge Diet: Regular Diet Other Inst to Patient Follow up Appt: Make appointment for 2 week. Instructions: No strenuous activity. May shower in 24 hours, no tub bath or soaking. Use incentive spirometer at home as directed. No Smoking Skin/Wound Care: You have special glue over your incision that will fall off on it's own. Symptoms to Report: Appetite Changes, Extremity Discoloration, Numbness/Tingling, Swelling Increased, Bleeding Excessive, Eyesight Changes, Pain Increased, Urine Color Change, Constipation(Persistent), Fever over 101 degree F, Pain/Pressure in ches t, Urinating Difficulty, Cough Up/Vomit Blood, Heart Beat Irreg/Pounding, Pain/Pressure in jaw, Vaginal Bleeding Increase, Cramps in feet or legs, Lightheadedness, Pain/Pressure in shoulder, Diarrhea(Persistent), Memory Changes Suddenly, Questions/Concerns, Weight gain consecutive days, Dizziness/Fainting, Nausea/Vomiting, Shortness of Breath, Weight gain over 2 pounds If questions or concerns contact your physician Or seek help at emergency department. AMY CUETO DO Aug 05, 2020 08:47
[2020-08-05] MEDS ORDERED: ONDANSETRON 4 MG/2 ML (SDV) Z0FRAN IVP PRN (09:00)
--- NOTE | 2020-08-05 12:01 | Anesthesia-General Post-Op ---
MAC Patient Condition Mental Status/LOC: Same as Preop Cardiovascular: Satisfactory Nausea/Vomiting: Absent Respiratory: Satisfactory Pain: Controlled Complications: Absent Post Op Complications Complications None Follow Up Care/Instructions Patient Instructions None needed. Anesthesiology Discharge Order Discharge Order Patient is doing well, no complaints, stable vital signs, no apparent adverse anesthesia problems. No complications reported per nursing. MATIAS PRIETO CRNA Aug 05, 2020 12:01
== END 2020-08-05 10:15 ==
LOC: SDC 06:13
PROVIDERS: ATTEND Surgery
DX: Z85.810 Personal history of malignant neoplasm of tongue (principal); I10 Essential (primary) hypertension; J44.9 Chronic obstructive pulmonary disease, unspecified; K21.9 Gastro-esophageal reflux disease without esophagitis; F41.9 Anxiety disorder, unspecified; E03.9 Hypothyroidism, unspecified; M15.9 Polyosteoarthritis, unspecified; G89.29 Other chronic pain; M54.5 Low back pain; E55.9 Vitamin D deficiency, unspecified; E66.01 Morbid (severe) obesity due to excess calories; Z68.34 Body mass index [BMI] 34.0-34.9, adult; Z79.51 Long term (current) use of inhaled steroids; Z88.0 Allergy status to penicillin; Z88.8 Allergy status to other drugs, medicaments and biological substances; Z85.79 Personal history of other malignant neoplasms of lymphoid, hematopoietic and related tissues; Z90.49 Acquired absence of other specified parts of digestive tract; Z80.9 Family history of malignant neoplasm, unspecified
CPT/HCPCS: 87081

== ENCOUNTER → 2020-12-09 | Outpatient (CLI) | payer MEDICARE ==
[~2020-12-09] MED LIST changes: +HYDR50TA6 PO; -LISI-552 PO; +LISI20TA26 PO
[2020-12-09 09:54] LABS: BASOPHILS # (AUTO) 0.1 10^3/uL (0.0-0.1); BASOPHILS % (AUTO) 1 % (0-10); EOSINOPHILS # (AUTO) 0.3 10^3/uL (0.0-0.3); EOSINOPHILS % (AUTO) 5 % (0-10); HEMATOCRIT 44 % (40-54); HEMOGLOBIN 13.5 g/dL (13.3-17.7); LYMPHOCYTES # (AUTO) 2.5 10^3/uL (1.0-4.0); LYMPHOCYTES % (AUTO) 43 % (12-44); MEAN CORPUSCULAR HEMOGLOBIN 23 pg (25-34); MEAN CORPUSCULAR HGB CONC 31 g/dL (32-36); MEAN CORPUSCULAR VOLUME 77 fL (80-99); MEAN PLATELET VOLUME 8.9 fL (9.0-12.2); MONOCYTES # (AUTO) 0.7 10^3/uL (0.0-1.0); MONOCYTES % (AUTO) 12 % (0-12); NEUTROPHILS # (AUTO) 2.3 10^3/uL (1.8-7.8); NEUTROPHILS % (AUTO) 39 % (42-75); PLATELET COUNT 364 10^3/uL (130-400); WHITE BLOOD COUNT 5.8 10^3/uL (4.3-11.0)
[2020-12-09 10:13] LABS: ALANINE AMINOTRANSFERASE 17 U/L (0-55); ALBUMIN 4.8 GM/DL (3.2-4.5); ALKALINE PHOSPHATASE 123 U/L (40-136); BILIRUBIN,TOTAL 0.6 MG/DL (0.1-1.0); BUN/CREATININE RATIO 13; CALCIUM 9.5 MG/DL (8.5-10.1); CARBON DIOXIDE 31 MMOL/L (21-32); CHLORIDE 98 MMOL/L (98-107); CREATININE SERUM 1.15 MG/DL (0.60-1.30); GFR ESTIMATED > 60; GLUCOSE 122 MG/DL (70-105); POTASSIUM 3.8 MMOL/L (3.6-5.0); SODIUM 137 MMOL/L (135-145); TOTAL PROTEIN 8.5 GM/DL (6.4-8.2)
[2020-12-09 10:34] LABS: FREE T4 (FREE THYROXINE) 1.03 NG/DL (0.70-1.48)
== END ==
LOC: LAB 09:03
PROVIDERS: ATTEND Internal Medicine Endocrinology, Diabetes & Metabolism
DX: D64.9 Anemia, unspecified (principal); E29.1 Testicular hypofunction
CPT/HCPCS: 36415; 80053; 82024; 82533; 82607; 82670; 82728; 83540; 83550; 84146; 84153; 84305; 84439; 84443; 85025

== ENCOUNTER → 2021-02-28 | Outpatient (CLI) | payer MEDICARE | LOC: LAB 08:10 | PROVIDERS: ATTEND Internal Medicine Endocrinology, Diabetes & Metabolism | DX: E29.1 Testicular hypofunction (principal) | CPT/HCPCS: 36415; 83001; 83002; 84270; 84403 ==

== ENCOUNTER → 2021-04-07 | Outpatient (CLI) | payer MEDICARE | LOC: LAB 10:04 | PROVIDERS: ATTEND Internal Medicine Endocrinology, Diabetes & Metabolism | DX: E29.1 Testicular hypofunction (principal) | CPT/HCPCS: 36415; 84403 ==

== ENCOUNTER → 2021-06-27 | Outpatient (CLI) | payer MEDICARE ==
[~2021-06-27] MED LIST changes: -DOXY100C2 PO; +DOXY100C5 PO; +METH-742 PO; -METH10TA2 PO
[2021-06-27 14:49] LABS: HEMATOCRIT 46 % (40-54); MEAN CORPUSCULAR HEMOGLOBIN 29 pg (25-34); MEAN CORPUSCULAR HGB CONC 33 g/dL (32-36); MEAN CORPUSCULAR VOLUME 89 fL (80-99); MEAN PLATELET VOLUME 9.1 fL (9.0-12.2); PLATELET COUNT 304 10^3/uL (130-400); WHITE BLOOD COUNT 5.8 10^3/uL (4.3-11.0)
[2021-06-27 15:29] LABS: FREE T4 (FREE THYROXINE) 0.97 NG/DL (0.70-1.48)
== END ==
LOC: LAB 13:55
PROVIDERS: ATTEND Internal Medicine Endocrinology, Diabetes & Metabolism
DX: M85.80 Other specified disorders of bone density and structure, unspecified site (principal); E29.1 Testicular hypofunction; E03.8 Other specified hypothyroidism
CPT/HCPCS: 36415; 82306; 84153; 84403; 84439; 84443; 85027

== ENCOUNTER → 2021-07-26 | Outpatient (CLI) | payer MEDICARE ==
[~2021-07-26] MED LIST changes: +POTA-169 PO; -POTA20TA8 PO
[2021-07-26 14:53] LABS: BASOPHILS # (AUTO) 0.1 10^3/uL (0.0-0.1); BASOPHILS % (AUTO) 1 % (0-10); EOSINOPHILS # (AUTO) 0.4 10^3/uL (0.0-0.3); EOSINOPHILS % (AUTO) 7 % (0-10); HEMATOCRIT 47 % (40-54); HEMOGLOBIN 15.1 g/dL (13.3-17.7); LYMPHOCYTES # (AUTO) 2.1 10^3/uL (1.0-4.0); LYMPHOCYTES % (AUTO) 39 % (12-44); MEAN CORPUSCULAR HEMOGLOBIN 29 pg (25-34); MEAN CORPUSCULAR HGB CONC 32 g/dL (32-36); MEAN CORPUSCULAR VOLUME 89 fL (80-99); MEAN PLATELET VOLUME 8.9 fL (9.0-12.2); MONOCYTES # (AUTO) 0.5 10^3/uL (0.0-1.0); MONOCYTES % (AUTO) 10 % (0-12); NEUTROPHILS # (AUTO) 2.3 10^3/uL (1.8-7.8); NEUTROPHILS % (AUTO) 43 % (42-75); PLATELET COUNT 277 10^3/uL (130-400); WHITE BLOOD COUNT 5.4 10^3/uL (4.3-11.0)
[2021-07-26 15:36] LABS: ALBUMIN 4.2 GM/DL (3.2-4.5); BILIRUBIN,TOTAL 0.5 MG/DL (0.1-1.0); CALCIUM 9.5 MG/DL (8.5-10.1); CREATININE SERUM 0.99 MG/DL (0.60-1.30); POTASSIUM 3.9 MMOL/L (3.6-5.0); TOTAL PROTEIN 7.4 GM/DL (6.4-8.2)
[2021-07-26 15:51] LABS: BAND NEUTROPHILS 2 %; NEUTROPHILS % (MANUAL) 43 %
[2021-07-26 15:52] LABS: EOSINOPHILS % (MANUAL) 8 %; LYMPHOCYTES % (MANUAL) 35 %; MONOCYTES % (MANUAL) 12 %; RBC MORPH NORMAL
== END ==
LOC: LAB 14:23
PROVIDERS: ATTEND Pediatrics
DX: Z01.89 Encounter for other specified special examinations (principal)
CPT/HCPCS: 36415; 80053; 80061; 83036; 84403; 84443; 85007; 85027

== ENCOUNTER → 2021-07-26 | Outpatient (CLI) | payer MEDICARE | LOC: LAB 14:07 | PROVIDERS: ATTEND Internal Medicine Endocrinology, Diabetes & Metabolism | DX: E29.1 Testicular hypofunction (principal); M85.80 Other specified disorders of bone density and structure, unspecified site; E03.8 Other specified hypothyroidism ==

== ENCOUNTER → 2021-11-14 | Outpatient (CLI) | payer MEDICARE ==
[2021-11-14 09:49] LABS: BASOPHILS % (AUTO) 1 % (0-10); EOSINOPHILS # (AUTO) 0.2 10^3/uL (0.0-0.3); EOSINOPHILS % (AUTO) 4 % (0-10); HEMATOCRIT 48 % (40-54); HEMOGLOBIN 15.6 g/dL (13.3-17.7); LYMPHOCYTES # (AUTO) 1.6 10^3/uL (1.0-4.0); LYMPHOCYTES % (AUTO) 25 % (12-44); MEAN CORPUSCULAR HEMOGLOBIN 29 pg (25-34); MEAN CORPUSCULAR HGB CONC 33 g/dL (32-36); MEAN CORPUSCULAR VOLUME 89 fL (80-99); MEAN PLATELET VOLUME 9.4 fL (9.0-12.2); MONOCYTES # (AUTO) 0.6 10^3/uL (0.0-1.0); MONOCYTES % (AUTO) 10 % (0-12); NEUTROPHILS # (AUTO) 3.8 10^3/uL (1.8-7.8); NEUTROPHILS % (AUTO) 61 % (42-75); PLATELET COUNT 323 10^3/uL (130-400); WHITE BLOOD COUNT 6.2 10^3/uL (4.3-11.0)
== END ==
LOC: LAB 09:17
PROVIDERS: ATTEND Internal Medicine Endocrinology, Diabetes & Metabolism
DX: E29.1 Testicular hypofunction (principal); M85.80 Other specified disorders of bone density and structure, unspecified site; E03.8 Other specified hypothyroidism
CPT/HCPCS: 36415; 84153; 84402; 84403; 84443; 85025

== ENCOUNTER → 2021-12-16 | Outpatient (CLI) | payer MEDICARE | LOC: LAB 09:36 | PROVIDERS: ATTEND Internal Medicine Endocrinology, Diabetes & Metabolism | DX: E29.1 Testicular hypofunction (principal); E03.8 Other specified hypothyroidism | CPT/HCPCS: 36415; 84402; 84403 ==

== ENCOUNTER → 2022-01-03 | Outpatient (CLI) | payer MEDICARE ==
[2022-01-03 07:41] LABS: BASOPHILS # (AUTO) 0.1 10^3/uL (0.0-0.1); BASOPHILS % (AUTO) 1 % (0-10); EOSINOPHILS # (AUTO) 0.3 10^3/uL (0.0-0.3); EOSINOPHILS % (AUTO) 4 % (0-10); HEMATOCRIT 48 % (40-54); HEMOGLOBIN 15.8 g/dL (13.3-17.7); LYMPHOCYTES # (AUTO) 2.2 10^3/uL (1.0-4.0); LYMPHOCYTES % (AUTO) 35 % (12-44); MEAN CORPUSCULAR HEMOGLOBIN 29 pg (25-34); MEAN CORPUSCULAR HGB CONC 33 g/dL (32-36); MEAN CORPUSCULAR VOLUME 87 fL (80-99); MEAN PLATELET VOLUME 9.4 fL (9.0-12.2); MONOCYTES # (AUTO) 0.8 10^3/uL (0.0-1.0); MONOCYTES % (AUTO) 12 % (0-12); NEUTROPHILS # (AUTO) 2.9 10^3/uL (1.8-7.8); NEUTROPHILS % (AUTO) 47 % (42-75); PLATELET COUNT 406 10^3/uL (130-400); WHITE BLOOD COUNT 6.2 10^3/uL (4.3-11.0)
== END ==
LOC: LAB 06:58
PROVIDERS: ATTEND Internal Medicine Endocrinology, Diabetes & Metabolism
DX: D64.9 Anemia, unspecified (principal); E29.1 Testicular hypofunction; E03.8 Other specified hypothyroidism
CPT/HCPCS: 36415; 84403; 84443; 85025

== ENCOUNTER → 2022-02-22 | Outpatient (CLI) | payer MEDICARE ==
[2022-02-22 08:14] LABS: BASOPHILS # (AUTO) 0.1 10^3/uL (0.0-0.1); BASOPHILS % (AUTO) 1 % (0-10); EOSINOPHILS # (AUTO) 0.2 10^3/uL (0.0-0.3); EOSINOPHILS % (AUTO) 2 % (0-10); HEMATOCRIT 48 % (40-54); HEMOGLOBIN 16.1 g/dL (13.3-17.7); LYMPHOCYTES # (AUTO) 1.6 10^3/uL (1.0-4.0); LYMPHOCYTES % (AUTO) 25 % (12-44); MEAN CORPUSCULAR HEMOGLOBIN 29 pg (25-34); MEAN CORPUSCULAR HGB CONC 34 g/dL (32-36); MEAN CORPUSCULAR VOLUME 86 fL (80-99); MEAN PLATELET VOLUME 9.1 fL (9.0-12.2); MONOCYTES # (AUTO) 0.5 10^3/uL (0.0-1.0); MONOCYTES % (AUTO) 8 % (0-12); NEUTROPHILS # (AUTO) 4.2 10^3/uL (1.8-7.8); NEUTROPHILS % (AUTO) 64 % (42-75); PLATELET COUNT 326 10^3/uL (130-400); WHITE BLOOD COUNT 6.6 10^3/uL (4.3-11.0)
== END ==
LOC: LAB 07:32
PROVIDERS: ATTEND Internal Medicine Endocrinology, Diabetes & Metabolism
DX: E29.1 Testicular hypofunction (principal); M85.80 Other specified disorders of bone density and structure, unspecified site; E03.8 Other specified hypothyroidism
CPT/HCPCS: 36415; 84403; 84443; 85025

== ENCOUNTER → 2022-04-09 | Outpatient (CLI) | payer MEDICARE ==
[2022-04-09 14:52] LABS: BASOPHILS # (AUTO) 0.1 10^3/uL (0.0-0.1); BASOPHILS % (AUTO) 1 % (0-10); EOSINOPHILS # (AUTO) 0.4 10^3/uL (0.0-0.3); EOSINOPHILS % (AUTO) 8 % (0-10); HEMATOCRIT 42 % (40-54); HEMOGLOBIN 13.8 g/dL (13.3-17.7); LYMPHOCYTES # (AUTO) 2.1 10^3/uL (1.0-4.0); LYMPHOCYTES % (AUTO) 42 % (12-44); MEAN CORPUSCULAR HEMOGLOBIN 29 pg (25-34); MEAN CORPUSCULAR HGB CONC 33 g/dL (32-36); MEAN CORPUSCULAR VOLUME 88 fL (80-99); MEAN PLATELET VOLUME 9.6 fL (9.0-12.2); MONOCYTES # (AUTO) 0.5 10^3/uL (0.0-1.0); MONOCYTES % (AUTO) 11 % (0-12); NEUTROPHILS # (AUTO) 1.9 10^3/uL (1.8-7.8); NEUTROPHILS % (AUTO) 38 % (42-75); PLATELET COUNT 291 10^3/uL (130-400); WHITE BLOOD COUNT 4.9 10^3/uL (4.3-11.0)
[2022-04-09 15:19] LABS: BILIRUBIN,TOTAL 0.6 MG/DL (0.1-1.0); CALCIUM 9.6 MG/DL (8.5-10.1); CREATININE SERUM 0.96 MG/DL (0.60-1.30); POTASSIUM 4.2 MMOL/L (3.6-5.0); TOTAL PROTEIN 6.9 GM/DL (6.4-8.2)
== END ==
LOC: LAB 14:26
PROVIDERS: ATTEND Internal Medicine Endocrinology, Diabetes & Metabolism
DX: E03.8 Other specified hypothyroidism (principal); I10 Essential (primary) hypertension; E29.1 Testicular hypofunction; E29.0 Testicular hyperfunction
CPT/HCPCS: 36415; 80053; 80061; 84153; 84403; 84443; 85025

== ENCOUNTER → 2022-04-09 | Outpatient (CLI) | payer MEDICARE | LOC: LAB 14:27 | PROVIDERS: ATTEND Pediatrics | DX: I10 Essential (primary) hypertension (principal); E29.1 Testicular hypofunction ==

== ENCOUNTER → 2022-07-19 | Outpatient (CLI) | payer MEDICARE ==
[2022-07-19 17:30] LABS: CHLORIDE 103 MMOL/L (98-107); POTASSIUM 4.2 MMOL/L (3.6-5.0); SODIUM 139 MMOL/L (135-145)
[2022-07-19 17:31] LABS: ALBUMIN 4.7 GM/DL (3.2-4.5)
[2022-07-19 17:32] LABS: CALCIUM 9.6 MG/DL (8.5-10.1); TRIGLYCERIDES 65 MG/DL (<150); VLDL CHOLESTEROL 13 MG/DL (5-40)
[2022-07-19 17:33] LABS: GLUCOSE 134 MG/DL (70-105); TOTAL PROTEIN 8.2 GM/DL (6.4-8.2)
[2022-07-19 17:34] LABS: CARBON DIOXIDE 26 MMOL/L (21-32)
[2022-07-19 17:35] LABS: BILIRUBIN,TOTAL 0.3 MG/DL (0.1-1.0)
[2022-07-19 17:36] LABS: ALKALINE PHOSPHATASE 94 U/L (40-136); CREATININE SERUM 0.91 MG/DL (0.60-1.30); GFR ESTIMATED 95
[2022-07-19 17:37] LABS: CHOLESTEROL 175 MG/DL (< 200)
[2022-07-19 17:38] LABS: BUN/CREATININE RATIO 21
[2022-07-19 17:39] LABS: HDL CHOLESTEROL 51 MG/DL (40-60)
[2022-07-19 17:40] LABS: ALANINE AMINOTRANSFERASE 15 U/L (0-55)
== END ==
LOC: LAB 16:35
DX: I10 Essential (primary) hypertension (principal); F33.1 Major depressive disorder, recurrent, moderate; F60.9 Personality disorder, unspecified
CPT/HCPCS: 36415; 80053; 80061

== ENCOUNTER → 2022-07-26 | Outpatient (CLI) | payer MEDICARE ==
--- NOTE | 2022-07-26 16:37 | Diagnostic Imaging Report ---
EXAMINATION: Chest 2 view HISTORY: DECREASED BREATH SOUNDS COMPARISON: 10/22/2013 FINDINGS: Heart size and pulmonary vasculature are normal. The lungs are clear without consolidation, pleural effusion, or pneumothorax. The osseous structures are intact. IMPRESSION: 1. No acute radiographic abnormality in the chest. Dictated by: Dictated on workstation # [id number]
== END ==
LOC: RAD 14:16
PROVIDERS: ATTEND Pediatrics
DX: R06.89 Other abnormalities of breathing (principal)
CPT/HCPCS: 71046

== ENCOUNTER → 2022-12-19 | Outpatient (CLI) | payer MEDICARE ==
--- NOTE | 2022-12-19 17:40 | Diagnostic Imaging Report ---
INDICATION: Osteoporosis COMPARISON: DEXA scan on 12/14/2020 FINDINGS: AP Spine L1-L4: [BMD (g/cm2): 1.230] [T-Score: -0.1] [Z-Score: 0.1] [BMD Previous: na] [BMD % Change: na] LT Hip Neck: [BMD (g/cm2): 0.886] [T-Score: -1.4] [Z-Score: -0.6] LT Hip Total: [BMD (g/cm2):0.873] [T-Score:-1.6] [Z-Score: -1.2] [BMD Previous: 0.863] [BMD % Change: 1.2] RT Hip Neck: [BMD (g/cm2):0.894] [T-Score:-1.4] [Z-Score:-0.5] RT Hip Total: [BMD (g/cm2):0.884] [T-score:-1.5] [Z-Score:-1.2] [BMD Previous:0.871] [BMD % Change:1.5] *Indicates significant change from prior examination based on 95% confidence level. World Health Organization criteria for BMD interpretation classify patients as Normal (T-score at or above -1.0), Osteopenic (T-score between -1.0 and -2.5) or Osteoporotic (T-score at or below -2.5). LIMITATIONS AND MODIFICATION: None. FRACTURE RISK (FRAX SCORE): The ten year probability of (%): Major Osteoporotic Fracture: [6.0] Hip Fracture: [0.8] IMPRESSION: 1. Osteopenia (Low bone mass). 2. No significant change in bone mineral density since prior examination. 3. See below National Osteoporosis Foundation guidelines on when to potentially initiate pharmacologic therapy. Based on the National Osteoporosis Foundation Guidelines, pharmacologic treatment should be initiated in any of the following, unless clinical conditions suggest otherwise: * Any patient with prior fragility fracture of the hip or vertebrae. A spine fracture indicates 5X risk for subsequent spine fracture and 2X risk for subsequent hip fracture. * Osteoporosis (T-score <-2.5). * Postmenopausal women and men age 50 and older with low bone mass/osteopenia (T-score between -1.0 and -2.5) by DXA and 10-year major osteoporotic fracture greater than 20% or a 10-year probability of hip fracture greater than 3%. These fracture risks are supplied above in the FRAX score, if applicable. * Clinician judgement and/or patient preferences may indicate treatment for people with 10-year fracture probabilities above or below these levels. Dictated by: Dictated on workstation # [id number]
== END ==
LOC: RAD 11:48
PROVIDERS: ATTEND Internal Medicine Endocrinology, Diabetes & Metabolism
DX: Z51.81 Encounter for therapeutic drug level monitoring (principal); M85.80 Other specified disorders of bone density and structure, unspecified site; E29.1 Testicular hypofunction; E03.8 Other specified hypothyroidism; M81.0 Age-related osteoporosis without current pathological fracture
CPT/HCPCS: 77080